=== PATIENT | male | born 1980 | race Two or more races ===

== ENCOUNTER → 2025-06-14 | Outpatient (CLI) | payer MEDICAID, SELFPAY ==
--- NOTE | 2025-06-14 13:27 | XR_ITS ---
Examination: Lumbar spine, 5 views Technique: Lumbar spine AP, lateral, coned lateral lower lumbar spine, bilateral obliques 5 views Exam date and time: June 14, 2025, 1332 hours MEDICATIONS: Low back pain 30 years getting worse. FINDINGS: Moderate osteopenia Moderate facet arthropathy No lumbar fracture Moderate lumbar spondylosis Mild diffuse lumbar disc narrowing IMPRESSION: Moderate lumbar spondylosis Mild diffuse lumbar disc narrowing
== END | disposition home or self-care (01) ==
LOC: CDIM 13:17
PROVIDERS: PCP Nurse Practitioner Family; Referring Provider Nurse Practitioner Family; Visit Provider Nurse Practitioner Family
DX: M47.816 Spondylosis without myelopathy or radiculopathy, lumbar region (principal); M48.061 Spinal stenosis, lumbar region without neurogenic claudication
CPT/HCPCS: 72110

== ENCOUNTER 2025-06-24 18:28 | Inpatient (IN) | payer MEDICAID, SELFPAY ==
--- NOTE | 2025-06-24 18:56 | XR_ITS ---
Examination: CT abdomen and pelvis without contrast. Coronal 3-D reconstructions. Sagittal 2-D reconstructions. Date and time of exam: June 24, 2025, 1912 hours INDICATIONS: Onset left-sided flank pain today CTDI: vol (mGy): 6.69 DLP: (mGycm): 410 Technique: Axial images of the abdomen have been obtained, 3 mm slice thickness Intravenous contrast material has not been administered. Low dose protocols were performed. One or more of the following dose reduction techniques were used; automated exposure control, adjustment of the mA and/or KV according to patient size, use of iterative reconstruction technique. Findings: 14 mm noncalcified pulmonary nodule left lower lobe No visualized liver or splenic lesion Suspicious for mild edema surrounding the pancreas Contracted gallbladder No adrenal mass No renal or ureteral calculi, no hydronephrosis Normal appendix Aorta normal size No prostatomegaly Urinary bladder intact Mild osteopenia IMPRESSION: 14 mm noncalcified pulmonary nodule left lower lobe, recommend PA lateral chest follow-up Suspicious for mild pancreatitis, clinical correlation advised No renal or ureteral calculi, no hydronephrosis
[2025-06-24 19:20] LABS: Basophils # (Auto) 0.1 Thou/mm3 (0.0-0.2); Basophils % (Auto) 0 % (0-2.5); Eosinophils # (Auto) 0.0 Thou/mm3 (0.0-0.5); Eosinophils % (Auto) 0 % (0-10); Hematocrit 42.5 % (41.0-53.0); Hemoglobin 15.3 g/dL (13.5-16.0); Immature Granulocytes Auto 0.10 Thou/mm3 (0.00-0.00); Lymphocytes # (Auto) 0.6 Thou/mm3 (1.0-4.8); Lymphocytes % (Auto) 3 % (10-50); Mean Corpuscular HGB Conc 36.0 g/dl (31.0-37.0); Mean Corpuscular Hemoglobin 33.6 pg (25.0-35.0); Mean Corpuscular Volume 93 fL (80-100); Monocytes # (Auto) 0.8 Thou/mm3 (0.0-0.8); Monocytes % (Auto) 4 % (0-12); Neutrophils # (Auto) 17.6 Thou/mm3 (1.8-7.7); Neutrophils % (Auto) 92 % (37-80); Nucleated Red Blood Cell # 0.00 Thou/mm3 (0.00-0.00); Nucleated Red Blood Cell % 0 /100 WBC (0); Platelet Count 259 Thou/mm3 (140-440); RDW Standard Deviation 41.1 fL (35.1-43.9); Red Blood Count 4.55 Miln/mm3 (4.50-5.90); White Blood Count 19.2 Thou/mm3 (3.8-10.6)
[2025-06-24 19:39] LABS: Alanine Aminotransferase 35 U/L (10-49); Albumin, Serum 5.0 gm/dL (3.5-5.0); Albumin/Globulin Ratio 2.1 (1.2-2.2); Alkaline Phosphatase 83 U/L (46-116); Anion Gap 12 (7-16); Aspartate Amino Transferase 48 U/L (0-34); BUN/Creatinine Ratio 7 Ratio (12-20); Bilirubin,Total 0.7 mg/dL (0.3-1.2); Blood Urea Nitrogen < 5 mg/dL (9-23); Calcium 10.0 mg/dL (8.3-10.6); Calcium (Corrected) 10.0 mg/dL (8.5-10.1); Carbon Dioxide 26.0 mMol/L (20.0-31.0); Chloride 98 mMol/L (98-107); Creatinine (Component) 0.7 mg/dL (0.6-1.3); Globulin 2.4 gm/dL (2.3-3.5); Glucose 129 mg/dL (74-106); Lipase 264 U/L (12-53); Osmolality,Calculated 271 (275-295); Potassium 3.9 mMol/L (3.4-5.1); Sodium 136 mMol/L (136-145); Total Protein 7.4 gm/dL (5.7-8.2); eGFR > 60 See Note
[2025-06-24 19:40] VITALS: BP 144/92; PULSE 72; RESP 18; TEMP 37; O2SAT 96
--- NOTE | 2025-06-24 19:51 | PD.EDABDPN ---
ED Abdominal Pain RME/HPI General Chief Complaint: Abdominal Pain Stated complaint: LLQ ABD PAIN, 05/31 Time seen by provider: 06/24/25 18:40 Arrival date/time: 06/24/25 18:28 This is a case of 44-year-old male with no medical history came into the emergency room due to generalized abdominal pain for 2 days associated with nausea vomiting due to worsening of the symptoms this patient decided to start consulted in the emergency room Related Data Allergies Allergy/AdvReac Type Severity Reaction Status Date / Time No Known Allergies Allergy Verified 06/24/25 18:35 Course Quality Measures none Orders Category Date Time Status COVID-19 Screening Questionnaire NOW Care 06/24/25 19:49 Active Decision to Admit X1 Care 06/24/25 19:[address] abdomen pelvis wo con Stat Exams 06/24/25 18:56 Completed CBC Stat Lab 06/24/25 19:07 Completed Comprehensive Metabolic Panel Stat Lab 06/24/25 19:07 Completed Lactic Acid [Lactate (Lactic Acid)] Stat Lab 06/24/25 19:49 Ordered Lipase Stat Lab 06/24/25 19:07 Completed Urinalysis Stat Lab 06/24/25 18:56 Ordered Morphine* Inj Med 06/24/25 19:50 Once 4 mg IVP X1 ONE Ondansetron Inj [Zofran Inj] Med 06/24/25 19:49 Once 4 mg IVP X1 ONE Sodium Chloride 0.9% 1000 ml [Ns] 1,000 ml Med 06/24/25 19:49 Ordered IV 999 mls/hr Vital Signs Vital signs: Vital Signs Temperature 98.6 F 06/24/25 19:40 Pulse Rate 72 06/24/25 19:40 Respiratory Rate 18 06/24/25 19:40 Blood Pressure 144/92 H 06/24/25 19:40 Pulse Oximetry (%) 96 06/24/25 19:40 Oxygen Delivery Method Room Air 06/24/25 19:40 Oxygen saturation is 96% in room air Abdominal Pain MDM MDM Narrative MDM Narrative:: This is a case of 44-year-old male with no medical history came into the emergency room due to generalized abdominal pain for 2 days associated with nausea vomiting due to worsening of the symptoms this patient decided to start consulted in the emergency room physical examination patient is awake alert oriented not in distress nontoxic looking well-hydrated well-nourished patient vital signs stable BP stable not tachycardic not tachypneic afebrile and nonhypoxic abdominal exam noted mild to moderate tenderness generalized in all quadrants of the abdomen no distention no guarding no rebound no rigidity negative psoas negative straight or negative Rovsing's negative Juwan's no Alvarez sign negative CVA tenderness excellent skin turgor patient blood test showed leukocytosis of 19.2 pending lactic acid patient has no anemia kidney and liver functions normal no electrolyte imbalance lipase is elevated at 264 urinalysis is still pending patient CT scan showed pancreatitis based on my physical examination and history patient need to be admitted for acute pancreatitis I spoke to Dr. Fuentes discussed patient condition history and physical examination and agreed that the patient need to be admitted discussed with the patient the treatment plan and admission and agreed Patient data External records reviewed:: [facility] previous records Clinical information provided by:: patient Social determinants that could affect healthcare access:: none Patient has the following chronic illnesses:: None How is presenting disease/condition affected by chronic disease/condition?: no chronic disease Evaluation data The following diagnostics were reviewed and interpreted by me:: lab results and radiology exam(s) Lab and/or radiology exams considered but not ordered:: Reviewed Interpretation Summary: Reviewed Medications / Prescriptions Medications or Prescriptions considered but not ordered:: Given Medication administrations:: Medication Administration History Sodium Chloride (Ns) 1,000 mls @ 999 mls/hr IV .Q1H1M ONE Stop: 06/24/25 20:49 Morphine Sulfate (Morphine Sulf Inj 4 Mg/Ml Vial) 4 mg IVP X1 ONE Stop: 06/24/25 19:51 Ondansetron HCl (Ondansetron Inj 2 Mg/Ml Inj 2 Ml) 4 mg IVP X1 ONE; Protocol Stop: 06/24/25 19:50 Given Consultations Consultation(s) initiated? (list below): Yes Consultation #1 (Physician, Specialty, Details): dr fuentes hospitalist and call discussed patient condition history and physical agreed patient need to be admitted for acute pancreatitis Diagnosis Differential diagnosis abdominal pain: abdominal pain, acute appendicitis, calculus of kidney, constipation, diverticulitis, endometriosis, gastroenteritis, pancreatitis and small bowel obstruction Most likely diagnosis given after review of the tests above:: Acute pancreatitis Admission Indicated Admission indicated?: indicated Explain why admission is indicated or not indicated:: Acute pancreatitis Admission Request Was there a request for admission?: Yes Admission Attestation Admission request attestation: Discussed case with [] from Hospitalist service regarding admission. Discussed patients ED course, exam findings, labs, and radiology results. The Hospitalist [agrees,declines] to accept the patient for admission. Disposition Plan Disposition Plan: Admit Discharge Plan Plan Patient Disposition: Admit Acute Care w/in Hospital Patient condition on transfer: Stable Prescriptions/Referrals Referrals: No Primary/Family,Physician [Primary Care Provider] - In 1 week Problem List Clinical Impression: Abdominal pain, Acute pancreatitis Patient/Caregiver Discharge Instructions Education Materials: Abdominal Pain, ED Pancreatitis Print Language: Turkmen Stand Alone Forms: Nirmala Award Info., Patient Portal Info Letter PA/SALESFORCE SPECIALIST Supervising Physician PA/SALESFORCE SPECIALIST Supervising Physician: dr white
--- NOTE | 2025-06-24 20:28 | XR_ITS ---
Examination: Abdomen sonogram, Limited Date and time of exam: June 24, 2025, 2125 hours INDICATIONS: Epigastric pain beginning 3 days ago. Technique: Real-time flynn scale transabdominal sonographic images of the upper abdomen obtained. Findings: Negative for gallstones Gallbladder wall 0.37 cm no edema Common bile duct 0.2 cm Pancreatic at 3.1 cm Liver 16.4 cm no focal liver lesions Normal hepatopetal portal venous Patent IVC IMPRESSION: Negative for cholelithiasis Borderline thickening gallbladder wall 0.37 cm, if cholecystitis is a clinical consideration, suggest HIDA scan or MRCP follow-up
[2025-06-24] MEDS: ONDANSETRON INJ 2 MG/ML INJ 2 ML 4 MG IVP (20:52)
[2025-06-24] MEDS: SODIUM CHLORIDE 0.9% 1000 ML 1,000 ML 999 ML IV (20:52)
[2025-06-24] MEDS: MORPHINE SULF INJ 4 MG/ML VIAL IVP (20:53)
[2025-06-24 20:55] VITALS: BMI 20.2
[2025-06-24 20:58] VITALS: BP 142/87; PULSE 76; RESP 22; TEMP 36.9; O2SAT 97
[2025-06-24 21:06] LABS: Lactate (Lactic Acid) 3.7 mMol/L (0.4-2.0)
--- NOTE | 2025-06-24 21:17 | ESHP_ITS ---
<Statement entered by Amadeo Soto MD - 06/25/25 05:48> I have discussed and was present for the essential components of the history, physical examination, diagnosis, and treatment plan with the resident. I agree with the patient's care as documented by the resident and amended herein by me. Amadeo Soto MD FACP. 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 Admitted for acute pancreatitis most likely alcohol induced. ED Course Summary: VS: Hypertensive, all other vitals stable. T 98.6F HR 72 RR 18 BP 144/92 O2 96% RA. Labs: Leukocytosis WBC 19.2 Lactic acid Lipase 264 AST 48 Imaging: CTAP mild pancreatitis, 14mm noncalicfied pulm nodule LLL. US gallbladder: negative for cholelithiasis, borderline thickening gallbladder wall 0.37cm Tx: Morphine sulfate 4mg IVPx1, ondansetron 4mg IVP and NS 1L Patient examined with a lithuanian speaking electronics technician. His friend is in the room and patient confirms he may be privy to the conversation. His pain is mainly eipgastric and in the RLQ but it also radiates to his back. He is uncertain if he is vomiting due to pain or nausea and states dos which means both in taiwanese. He has not eaten today so he is uncertain if eating is exacerbating his pain. He denies history of trauma to his abdomen. He denies having any blood in his stool or vomit. He endorses an appetite and requests food. His last drink was today, he does not have a history of alcohol withdrawal seizures. Code: Full Insulin: None Medical Hx: None Medications: None Allergies: KNA Surgical history: None Fhx: Noncontributory Living: with friend Alcohol: 6-12 beers (12oz) every day since age 13 -- 29 years Cigarettes/tobacco: denies Recreational drugs: denies Patient admitted for: acute pancreatitis All 12 systems reviewed and were negative except otherwise stated in HPI. Exam Vital Signs Temp Pulse Resp BP Pulse Ox O2 Del Method 98.5 F 76 22 H 142/87 H 97 Room Air 06/24/25 20:58 06/24/25 20:58 06/24/25 20:58 06/24/25 20:58 06/24/25 20:58 06/24/25 20:58 Narrative Exam GENERAL APPEARANCE: AOx4. NAD, activity normal for age, well developed/ well nourished, no cyanosis, pallor, or diaphoresis. HEENT: Normocephalic atraumatic, no facial trauma, neck is supple. Lids/conjunctiva normal. Mucous membranes moist, nares normal, lips/teeth normal uvula midline without oral pharyngeal erythema, exudate or swelling TMs normal bilaterally. No lymphangitis/lymphedema. CARDIAC: Regular rate and rhythm, S1+S2 heard. No murmurs, rubs, or gallops noted RESPIRATORY: respiratory effort normal, speaks in full sentences, no tripod position, no accessory muscle use. Lungs clear to auscultation without rhonchi, wheezes, rales ABDOMINAL: NBS. Soft, diffusely TTP most sensitive in epigastrium and RLQ. No evidence of fluid wave. No pulsatile masses on exam, rebound tenderness, Alvarez sign or pain over Mcburney's point. MUSCLES/EXTREMITIES: No abnormal range of motion, no swelling. DERM: Warm, pink and dry. No rashes, dermatoses, petechiae or lesions. NEUROLOGICAL: Speech is clear and appropriate. Normal level of consciousness. Gait and coordination are normal. 5/5 strength in all extremities. PSYCH: Normal mood and affect. Judgement/competence is appropriate Results: Labs 06/24/25 19:07 06/24/25 19:07 Labs: Short CBC 06/24/25 Range/Units 19:07 WBC 19.2 H (3.8-10.6) Thou/mm3 Hgb 15.3 (13.5-16.0) g/dL Hct 42.5 (41.0-53.0) % Plt Count 259 (140-440) Thou/mm3 BMP 06/24/25 19:07 Sodium 136 Potassium 3.9 Chloride 98 Carbon Dioxide 26.0 BUN < 5 L Creatinine 0.7 Glucose 129 H Calcium 10.0 Liver Function 06/24/25 Range/Units 19:07 Total Bilirubin 0.7 (0.3-1.2) mg/dL AST 48 H (0-34) U/L ALT 35 (10-49) U/L Alkaline Phosphatase 83 (46-116) U/L Albumin 5.0 (3.5-5.0) gm/dL Quality Measures Quality Measures none Medications Home Medications and Allergies Allergies Allergy/AdvReac Type Severity Reaction Status Date / Time No Known Allergies Allergy Verified 06/24/25 18:35 Visit Medications Discontinued Medications Sodium Chloride (Ns) 1,000 mls @ 999 mls/hr IV .Q1H1M ONE Stop: 06/24/25 20:49 Last Admin: 06/24/25 20:52 Dose: 999 mls/hr Morphine Sulfate (Morphine Sulf Inj 4 Mg/Ml Vial) 4 mg IVP X1 ONE Stop: 06/24/25 19:51 Last Admin: 06/24/25 20:53 Dose: 4 mg Ondansetron HCl (Ondansetron Inj 2 Mg/Ml Inj 2 Ml) 4 mg IVP X1 ONE; Protocol Stop: 06/24/25 19:50 Last Admin: 06/24/25 20:52 Dose: 4 mg Assessment & Plan Plan 44 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 Admitted for acute pancreatitis most likely alcohol induced. #Acute Pancreatitis Ddx igdiopathic, gallstone, ethanol, trauma. 2 days of worsening nausea and vomiting with pain that radiates to the back. 31 year history of 6-12 beers/day alcohol consumption. Physical exam was significant for diffuse TTP of the abdomen with heightened sensitivity in RLQ and epigastrium, no signs of acute abdomen. Labs significant for leukocytosis WBC 19.2 Lactic acid Lipase 264 AST 48. CTAP mild pancreatitis. Very low clinical suspicion for gallstones due to normal T.bili and minimal RUQ discomfort TTP, Gallbladder US: negative for cholelithiasis, borderline thickening gallbladder wall 0.37cm. If cholecystitis is clinical consideration suggest HIDA scan or MRCP follow up. Patient denies history of trauma to the abdomen. Advance diet as tolerated, hold for any nausea, vomiting or post prandial pain. Plan: -FUP lipid panel:___ -FUP LDH:___ -FUP A1C:___ -Zofran 4mg IVP Q6HR PRN inj -IVF LR 1.5ml/kg/hr (65x1.5=97.5ml/hr rounded up to 100ml/hr) -Tylenol 650mg PO Q6HR PRN -Narco 5 PO Q4HR PRN -Morphine inj 2mg IVP Q4HR PRN -Diet CLD advance as tolerated -I/O routine #CIWA 31 year history of 6-12 beers/day alcohol consumption. Last drink today. CIWA difficult to assess due to overlap with pancreatitis such as nausea, vomiting, and discomfort. CIWA 5 due to NV, no tremor appreciated, mildly anxious, minimally agitated, no hallucinations. LFTS wnl other than minimal elevation of aspartate. Spoke with department nurse BRYAN less than 8 med surg, 8-15 can go to tele. Pending change or worsening symptoms will upgrade. Plan: -CIWA protocols -Folic acid -Thiamine #Incidental finding 14mm Noncalcified pulm nodule LLL Plan: -PA lateral chest Health Maintenance: Code status: Full DVT prophylaxis: heparin subQ Q12hr GI prophylaxis: Famotidine Diet: CLD advance as tolerated Ramesh: None Lines: PIV Supplemental O2: NC Disposition: Med surg for pancreatitis Patient seen and reviewed with attending Dr. Soto. Note written by Jagdish Pond MD PGY-1
[2025-06-24 22:04] LABS: Collection Type, Urine Clean Catch; Squamous Epithelial Cell,Urine 0 /hpf (0-5)
[2025-06-24 22:11] LABS: Bilirubin,Urine Negative (Negative); Blood,Urine Trace (Negative); Clarity,Urine Clear (Clear/Hazy); Color,Urine Yellow (Lt Yel-Yel); Glucose, Urine Negative (Negative); Hyaline Casts,Urine < 1 /hpf (0-1); Ketones,Urine Negative (Negative); Leukocyte Esterase,Urine Negative (Negative); Nitrite,Urine Negative (Negative); PH,Urine 6.5 (5.0-7.0); Protein,Urine Trace (Neg - Trace); RBC,Urine 17 /hpf (0-3); Specific Gravity,Urine 1.027 (1.001-1.035); Urobilinogen,Urine Negative mg/dL (0.0-1.0); WBC,Urine 2 /hpf (0-5)
--- NOTE | 2025-06-24 22:52 | XR_ITS ---
EXAMINATION: Lateral chest view TECHNIQUE: Upright lateral chest single view Date and time: June 24, 2025, 11:01 p.m., comparison none CT abdomen June 24, 2025 INDICATION: 14 mm noncalcified pulmonary nodule left lower lobe on CT abdomen study today FINDINGS: 10 mm nodule overlying the right middle lobe on the lateral view Atelectasis versus pneumonia left lower lobe IMPRESSION: 10 mm nodule overlying the right middle lobe on the lateral view, recommend 3-month follow-up PA lateral chest
[2025-06-24] MEDS: RINGERS LACTATED 1000 ML 1,000 ML 100 ML IV (22:57)
[2025-06-24] MEDS: MORPHINE SULF INJ 4 MG/ML VIAL 2 MG IVP (23:03)
--- NOTE | 2025-06-24 23:11 | PC.NURSE ---
to cxr per w/c, saline lock iv. Accompanied by it business process architect.
[2025-06-25] VITALS (7 sets, daily range): BP systolic 125–132; BP diastolic 79–86; PULSE 62–78; RESP 16–18; TEMP 36.9–37.6; O2SAT 96–97; BMI 20.2
[2025-06-25 00:03] LABS: Reflex Lactate? Y
[2025-06-25 00:53] LABS: Lactic Acid, 3 HR 2.6 mMol/L (0.4-2.0)
[2025-06-25 06:24] LABS: Basophils # (Auto) 0.0 Thou/mm3 (0.0-0.2); Basophils % (Auto) 0 % (0-2.5); Eosinophils # (Auto) 0.0 Thou/mm3 (0.0-0.5); Eosinophils % (Auto) 0 % (0-10); Hematocrit 40.8 % (41.0-53.0); Hemoglobin 14.2 g/dL (13.5-16.0); Immature Granulocytes Auto 0.04 Thou/mm3 (0.00-0.00); Lymphocytes # (Auto) 1.2 Thou/mm3 (1.0-4.8); Lymphocytes % (Auto) 10 % (10-50); Mean Corpuscular HGB Conc 34.8 g/dl (31.0-37.0); Mean Corpuscular Hemoglobin 33.4 pg (25.0-35.0); Mean Corpuscular Volume 96 fL (80-100); Monocytes # (Auto) 0.7 Thou/mm3 (0.0-0.8); Monocytes % (Auto) 6 % (0-12); Neutrophils # (Auto) 9.7 Thou/mm3 (1.8-7.7); Neutrophils % (Auto) 83 % (37-80); Nucleated Red Blood Cell # 0.00 Thou/mm3 (0.00-0.00); Nucleated Red Blood Cell % 0 /100 WBC (0); Platelet Count 242 Thou/mm3 (140-440); RDW Standard Deviation 42.1 fL (35.1-43.9); Red Blood Count 4.25 Miln/mm3 (4.50-5.90); White Blood Count 11.6 Thou/mm3 (3.8-10.6)
[2025-06-25 06:45] LABS: Alanine Aminotransferase 26 U/L (10-49); Albumin, Serum 4.4 gm/dL (3.5-5.0); Albumin/Globulin Ratio 2.6 (1.2-2.2); Alkaline Phosphatase 72 U/L (46-116); Anion Gap 10 (7-16); Aspartate Amino Transferase 33 U/L (0-34); BUN/Creatinine Ratio 9 Ratio (12-20); Bilirubin,Total 1.1 mg/dL (0.3-1.2); Blood Urea Nitrogen 6 mg/dL (9-23); Calcium 9.3 mg/dL (8.3-10.6); Calcium (Corrected) 9.3 mg/dL (8.5-10.1); Carbon Dioxide 29.3 mMol/L (20.0-31.0); Cardiac Risk Estimate 2.2 RATIO (4.0-6.7); Chloride 100 mMol/L (98-107); Cholesterol 161 mg/dL (132-200); Creatinine (Component) 0.7 mg/dL (0.6-1.3); Estimated Creatinine Clearance 122.7 mL/min (>60); Globulin 1.7 gm/dL (2.3-3.5); Glucose 109 mg/dL (74-106); HDL Cholesterol 73 mg/dL (40-60); LDL Cholesterol,Calculated 66 mg/dL (0-130); Magnesium 1.8 mg/dL (1.6-2.6); Osmolality,Calculated 276 (275-295); Phosphorous 3.2 mg/dL (2.4-5.1); Potassium 3.6 mMol/L (3.4-5.1); Sodium 139 mMol/L (136-145); Total Protein 6.1 gm/dL (5.7-8.2); Triglycerides 112 mg/dL (30-150); eGFR > 60 See Note
[2025-06-25] MEDS: RINGERS LACTATED 1000 ML 1,000 ML 100 ML IV ×3 (06:45→19:25)
[2025-06-25 06:48] LABS: Glucose Estimated Average 120 mg/dL (80-131); Hemoglobin A1C 5.8 % Hgb (4.8-6.0)
[2025-06-25] MEDS: FAMOTIDINE INJ 10 MG/ML VIAL 2 ML 20 MG IVP ×2 (09:25→20:12)
[2025-06-25] MEDS: KETOROLAC INJ 30 MG/ML VIAL IVP ×3 (09:28→20:08)
[2025-06-25] MEDS: DOCUSATE SOD 100 MG CAPSULE PO (09:29)
[2025-06-25] MEDS: THIAMINE 100 MG TABLET PO ×2 (09:29→20:15)
[2025-06-25] MEDS: HYDROcodone/APAP 5/325 TABLET 1 TAB PO (09:29)
[2025-06-25] MEDS: HEPARIN SOD INJ 5000 UNIT/ML VIAL SC ×2 (09:29→20:19)
[2025-06-25] MEDS: FOLIC ACID 1 MG TABLET PO ×2 (09:29→20:15)
--- NOTE | 2025-06-25 11:47 | PC.SS ---
SS provided pt with verbal options to establish PCP. Patient's choice is [facility]. SS spoke to Poppy from [facility] and scheduled pt an appointment with Dr. Vaughn from [facility] address: [address] [place] [address]. [id number] phone# [phone] at 11:45am on Tuesday. SS provided pt with [facility] with appointment information.
--- NOTE | 2025-06-25 12:17 | PC.SS ---
SS met with patient regarding his d/c plan. Pt is alert/oriented. Pt was admitted for Acute Pancreatits. Pt confirmed demographic and contact information is correct on facesheet. Pt resides with sister. Pt ambulates independently without assistance or DME. Pt is ok with all ADLs. Patient?s pharmacy of choice is [facility] on [address] Pt named his sister, Kellie Daniel medical decision maker if he is unable. Patient?s choice is to return home upon d/c. Pt states he followed up with PCP 6 months ago. Sister or his friend, Thee will provide transportation home upon dc. D/C plan: Return home Next of Kin: Kellie Daniel, sister, phone# [phone] PCP: Will establish with Dr. Vaughn from [facility] Address: Correct on facesheet
--- NOTE | 2025-06-25 16:47 | ESPR_ITS ---
<Statement entered by Pedro Mei MD - 06/25/25 18:09> Patient seen and examined at bedside. I discussed and supervised with the internet sales representative physician who took care of this patient. I personally saw and examined the patient. I agree with most of the assessment and plan. Plan of care discussed with attending Dr. Hernandez. Pedro Mei MD PGY-2 Documentation for date of: 06/25/25 Subjective Subjective Interval history: Patient is seen and examined by bedside. Reported feeling better and requested more food. Denied nausea, vomiting. Admitted to abdominal pain 02/28 an requested pain medication. Labs and imagings including incidental findings explained to patient and sister with patient's permission. Plan to advance diet as tolerated and reassess tomorrow. Exam Vital Signs Temp Pulse Resp BP Pulse Ox O2 Del Method 98.4 F 62 17 125/79 97 Room Air 06/25/25 11:53 06/25/25 11:53 06/25/25 11:53 06/25/25 11:53 06/25/25 11:53 06/25/25 11:53 Narrative Exam GENERAL APPEARANCE: AOx4. NAD, activity normal for age, well developed/ well nourished, no cyanosis, pallor, or diaphoresis. CARDIAC: Regular rate and rhythm, S1+S2 heard. No murmurs, rubs, or gallops noted RESPIRATORY: respiratory effort normal, speaks in full sentences, no tripod position, no accessory muscle use. Lungs clear to auscultation without rhonchi, wheezes, rales ABDOMINAL: NBS. Soft, diffusely TTP most sensitive in epigastrium and RLQ. No evidence of fluid wave. No pulsatile masses on exam, rebound tenderness, Alvarez sign or pain over Mcburney's point. MUSCLES/EXTREMITIES: No abnormal range of motion, no swelling. DERM: Warm, pink and dry. No rashes, dermatoses, petechiae or lesions. NEUROLOGICAL: Speech is clear and appropriate. Normal level of consciousness. Gait and coordination are normal. 5/5 strength in all extremities. PSYCH: Normal mood and affect. Objective Labs 06/26/25 05:00 06/26/25 05:00 Labs: Laboratory Results - last 24 hr 06/24/25 06/24/25 06/24/25 19:07 20:36 21:52 WBC 19.2 H RBC 4.55 Hgb 15.3 Hct 42.5 MCV 93 MCH 33.6 MCHC 36.0 RDW Std Deviation 41.1 Plt Count 259 Neut % (Auto) 92 H Lymph % (Auto) 3 L Wood % (Auto) 4 Eos % (Auto) 0 Baso % (Auto) 0 Neut # (Auto) 17.6 H Lymph # (Auto) 0.6 L Wood # (Auto) 0.8 Eos # (Auto) 0.0 Baso # (Auto) 0.1 Immature Gran # (Auto) 0.10 H Absolute Nucleated RBC 0.00 Immature Gran % 1 H Nucleated RBC % 0 Sodium 136 Potassium 3.9 Chloride 98 Carbon Dioxide 26.0 Anion Gap 12 BUN < 5 L Creatinine 0.7 Estim Creat Clear Calc Not Performed. eGFR > 60 BUN/Creatinine Ratio 7 L Glucose [address] Glu mg/dL Hemoglobin A1c Calculated Osmolality 271 L Lactic Acid 3.7 H Calcium 10.0 Corrected Calcium 10.0 Phosphorus Magnesium Total Bilirubin 0.7 AST 48 H ALT 35 Alkaline Phosphatase 83 Total Protein 7.4 Albumin 5.0 Globulin 2.4 Albumin/Globulin Ratio 2.1 Triglycerides Cholesterol LDL Cholesterol, Calc HDL Cholesterol Cholesterol/HDL Ratio Lipase 264 H Ur Collection Type Clean Catch Urine Color Yellow Urine Clarity Clear Urine pH 6.5 Ur Specific [place] 1.027 Urine Protein Trace Urine Glucose (UA) Negative Urine Ketones Negative Urine Blood Trace Urine Nitrite Negative Urine Bilirubin Negative Urine Urobilinogen (Auto) Negative Ur Leukocyte Esterase Negative Urine RBC 17 H Urine WBC 2 Ur Squamous Epith Cells 0 Urine Bacteria None Hyaline Casts < 1 06/25/25 06/25/25 00:34 05:57 WBC 11.6 H D RBC 4.25 L Hgb 14.2 Hct 40.8 L MCV 96 MCH 33.4 MCHC 34.8 RDW Std Deviation 42.1 Plt Count 242 Neut % (Auto) 83 H Lymph % (Auto) 10 Wood % (Auto) 6 Eos % (Auto) 0 Baso % (Auto) 0 Neut # (Auto) 9.7 H Lymph # (Auto) 1.2 Wood # (Auto) 0.7 Eos # (Auto) 0.0 Baso # (Auto) 0.0 Immature Gran # (Auto) 0.04 H Absolute Nucleated RBC 0.00 Immature Gran % 0 Nucleated RBC % 0 Sodium 139 Potassium 3.6 Chloride 100 Carbon Dioxide 29.3 Anion Gap 10 BUN 6 L Creatinine 0.7 Estim Creat Clear Calc 122.7 eGFR > 60 BUN/Creatinine Ratio 9 L Glucose [address] Glu mg/dL 120 Hemoglobin A1c 5.8 Calculated Osmolality 276 Lactic Acid 2.6 H Calcium 9.3 Corrected Calcium 9.3 Phosphorus 3.2 Magnesium 1.8 Total Bilirubin 1.1 AST 33 ALT 26 Alkaline Phosphatase 72 Total Protein 6.1 Albumin 4.4 D Globulin 1.7 L Albumin/Globulin Ratio 2.6 H Triglycerides 112 Cholesterol 161 LDL Cholesterol, Calc 66 HDL Cholesterol 73 H Cholesterol/HDL Ratio 2.2 L Lipase Ur Collection Type Urine Color Urine Clarity Urine pH Ur Specific [place] Urine Protein Urine Glucose (UA) Urine Ketones Urine Blood Urine Nitrite Urine Bilirubin Urine Urobilinogen (Auto) Ur Leukocyte Esterase Urine RBC Urine WBC Ur Squamous Epith Cells Urine Bacteria Hyaline Casts Quality Measures Quality Measures VTE prophylaxis Assessment & Plan Assessment Current Active Medications: Generic Name Dose Route Start Last Admin Trade Name Freq PRN Reason Stop Dose Admin Acetaminophen 650 mg 06/24/25 21:18 Acetaminophen 325 Mg Tablet PO 07/24/25 21:17 Q6H PRN Fever >100.4 or pain 1-3 Hydrocodone Bitart/Acetaminophen 1 tab 06/24/25 21:23 06/25/25 09:29 Hydrocodone/Apap 5/325 Tablet PO 06/29/25 21:22 1 tab Q4HR PRN Administration PAIN SCALE 4-6 (Moderate Docusate Sodium 100 mg 06/25/25 09:00 06/25/25 09:29 Docusate Sod 100 Mg Capsule PO 07/25/25 08:59 100 mg QDAY RAYMOND Administration Protocol Famotidine 20 mg 06/25/25 09:00 06/25/25 09:25 Famotidine Inj 10 Mg/Ml Vial 2 Ml IVP 07/25/25 08:59 20 mg Q12HR RAYMOND Administration Folic Acid 1 mg 06/25/25 09:00 06/25/25 09:29 Folic Acid 1 Mg Tablet PO 06/30/25 08:59 1 mg BID RAYMOND Administration Heparin Sodium (Porcine) 5,000 unit 06/25/25 09:00 06/25/25 09:29 Heparin Sod Inj 5000 Unit/Ml Vial SC 07/09/25 08:59 5,000 unit Q12HR RAYMOND Administration Lactated Ringer's 1,000 mls @ 100 mls/hr 06/24/25 21:30 06/25/25 09:25 Lactated Ringers IV 07/24/25 21:29 100 mls/hr .Q10H RAYMOND Administration Ketorolac Tromethamine 30 mg 06/25/25 21:00 Ketorolac Inj 30 Mg/Ml Vial IVP 06/25/25 21:01 Q6HR RAYMOND Lorazepam 0.5 mg 06/24/25 21:54 Lorazepam 0.5 Mg Tablet PO 06/29/25 21:53 Q4HR PRN CIWA Score 2-6 Lorazepam 1 mg 06/24/25 21:54 Lorazepam 0.5 Mg Tablet PO 06/29/25 21:53 Q4HR PRN CIWA SCORE 7-11 Lorazepam 2 mg 06/24/25 21:54 Lorazepam 0.5 Mg Tablet PO 06/29/25 21:53 Q4HR PRN CIWA SCORE 12-15 Morphine Sulfate 2 mg 06/24/25 21:23 06/24/25 23:03 Morphine Sulf Inj 4 Mg/Ml Vial IVP 06/29/25 21:22 2 mg Q4HR PRN Administration PAIN SCALE 7-10 (Severe Ondansetron HCl 4 mg 06/24/25 21:18 Ondansetron Inj 2 Mg/Ml Inj 2 Ml IVP 07/24/25 21:17 Q6H PRN NAUSEA OR VOMITING Protocol Thiamine HCl 100 mg 06/25/25 09:00 06/25/25 09:29 Thiamine 100 Mg Tablet PO 06/30/25 08:59 100 mg BID RAYMOND Administration Plan #Acute Pancreatitis Ddx idiopathic, gallstone, ethanol, trauma. 2 days of worsening nausea and vomiting with pain that radiates to the back. 31 year history of 6-12 beers/day alcohol consumption. Physical exam was significant for diffuse TTP of the abdomen with heightened sensitivity in RLQ and epigastrium, no signs of acute abdomen. Labs significant for leukocytosis WBC 19.2 Lactic acid Lipase 264 AST 48. CTAP mild pancreatitis. Very low clinical suspicion for gallstones due to normal T.bili and minimal RUQ discomfort TTP, Gallbladder US: negative for cholelithiasis, borderline thickening gallbladder wall 0.37cm. Patient denies history of trauma to the abdomen. Advance diet as tolerated. Triaglyceride 112. Plan: -Zofran 4mg IVP Q6HR PRN inj -IVF LR 1.5ml/kg/hr (65x1.5=97.5ml/hr rounded up to 100ml/hr) -Tylenol 650mg PO Q6HR PRN -Narco 5 PO Q4HR PRN -Morphine inj 2mg IVP Q4HR PRN -Ketorolac 30mg IVP Q6HR -Diet FLD advance as tolerated -I/O routine #CIWA 31 year history of 6-12 beers/day alcohol consumption. Last drink today. CIWA difficult to assess due to overlap with pancreatitis such as nausea, vomiting, and discomfort. CIWA 5 due to NV, no tremor appreciated, mildly anxious, minimally agitated, no hallucinations. LFTS wnl other than minimal elevation of aspartate. Last drink 24hrs ago. CIWA 0 this morning Plan: -CIWA protocols -Folic acid -Thiamine #Incidental finding 14mm Noncalcified pulm nodule LLL -CT abdomen/pelvis showed 14 mm noncalcified pulmonary nodule left lower lobe, recommend PA lateral chest follow-up -Chest Xray showed 10 mm nodule overlying the right middle lobe on the lateral view, recommend 3-month follow-up PA lateral chest -Patient is currently asymptomatic at this time, no intervention needed Plan: -Advised patient to follow up with PCP to repeat PA lateral chest in 3 mon DVT prophylaxis: Heparin GI prophylaxis: Pepcid Diet: Full liquid diet, advance as tolerated Lines: Peripheral IV Code status: Full code Assessment and plan discussed with my attending physician Dr. Hernandez and Dr. Mei (PGY-2). Dr. Sutherland (PGY-1) ? physical therapy resident Attending Provider Attestation/Addendum I have discussed and was present for the essential components of the history, physical examination, diagnosis, and treatment plan with the resident. I agree with the patient's care as documented by the resident and amended herein by me. Sheldon Hernandez DO. Although this document has been carefully reviewed, there may still be some phonetic and other typographical errors. These errors are purely grammatical due to imperfections in the software program and should not be construed in any way to compromise the substance of the patient's medical care during this visit.
[2025-06-26] VITALS: BP 134/80; PULSE 74; RESP 17; TEMP 37.3; O2SAT 97
[2025-06-26 04:00] VITALS: BP 135/96; PULSE 92; RESP 18; TEMP 37.6; O2SAT 95
[2025-06-26] MEDS: MORPHINE SULF INJ 4 MG/ML VIAL 2 MG IVP (05:10)
[2025-06-26] MEDS: RINGERS LACTATED 1000 ML 1,000 ML 100 ML IV (05:15)
[2025-06-26 06:00] VITALS: BMI 20.2
[2025-06-26 06:22] LABS: Basophils # (Auto) 0.0 Thou/mm3 (0.0-0.2); Basophils % (Auto) 0 % (0-2.5); Eosinophils # (Auto) 0.0 Thou/mm3 (0.0-0.5); Eosinophils % (Auto) 0 % (0-10); Hematocrit 39.8 % (41.0-53.0); Hemoglobin 14.2 g/dL (13.5-16.0); Immature Granulocytes Auto 0.05 Thou/mm3 (0.00-0.00); Lymphocytes # (Auto) 0.9 Thou/mm3 (1.0-4.8); Lymphocytes % (Auto) 7 % (10-50); Mean Corpuscular HGB Conc 35.7 g/dl (31.0-37.0); Mean Corpuscular Hemoglobin 34.3 pg (25.0-35.0); Mean Corpuscular Volume 96 fL (80-100); Monocytes # (Auto) 1.0 Thou/mm3 (0.0-0.8); Monocytes % (Auto) 7 % (0-12); Neutrophils # (Auto) 11.1 Thou/mm3 (1.8-7.7); Neutrophils % (Auto) 85 % (37-80); Nucleated Red Blood Cell # 0.00 Thou/mm3 (0.00-0.00); Nucleated Red Blood Cell % 0 /100 WBC (0); Platelet Count 209 Thou/mm3 (140-440); RDW Standard Deviation 42.3 fL (35.1-43.9); Red Blood Count 4.14 Miln/mm3 (4.50-5.90); White Blood Count 13.1 Thou/mm3 (3.8-10.6)
[2025-06-26 06:47] LABS: Alanine Aminotransferase 19 U/L (10-49); Albumin, Serum 4.3 gm/dL (3.5-5.0); Albumin/Globulin Ratio 2.3 (1.2-2.2); Alkaline Phosphatase 71 U/L (46-116); Anion Gap 10 (7-16); Aspartate Amino Transferase 27 U/L (0-34); BUN/Creatinine Ratio 10 Ratio (12-20); Bilirubin,Total 1.0 mg/dL (0.3-1.2); Blood Urea Nitrogen 6 mg/dL (9-23); Calcium 9.4 mg/dL (8.3-10.6); Calcium (Corrected) 9.4 mg/dL (8.5-10.1); Carbon Dioxide 29.0 mMol/L (20.0-31.0); Chloride 99 mMol/L (98-107); Creatinine (Component) 0.6 mg/dL (0.6-1.3); Estimated Creatinine Clearance 143.1 mL/min (>60); Globulin 1.9 gm/dL (2.3-3.5); Glucose 111 mg/dL (74-106); Magnesium 1.6 mg/dL (1.6-2.6); Osmolality,Calculated 274 (275-295); Phosphorous 2.9 mg/dL (2.4-5.1); Potassium 3.4 mMol/L (3.4-5.1); Sodium 138 mMol/L (136-145); Total Protein 6.2 gm/dL (5.7-8.2); eGFR > 60 See Note
[2025-06-26 07:24] VITALS: BP 135/86; PULSE 77; RESP 16; TEMP 36.5; O2SAT 95
[2025-06-26] MEDS: DOCUSATE SOD 100 MG CAPSULE PO (10:09)
[2025-06-26] MEDS: THIAMINE 100 MG TABLET PO ×2 (10:10→20:47)
[2025-06-26] MEDS: FOLIC ACID 1 MG TABLET PO ×2 (10:10→20:47)
[2025-06-26] MEDS: HEPARIN SOD INJ 5000 UNIT/ML VIAL SC ×2 (10:11→20:47)
--- NOTE | 2025-06-26 11:00 | PC.SS ---
SS follow up note; Patient is discharging home today.
[2025-06-26] MEDS: FAMOTIDINE INJ 10 MG/ML VIAL 2 ML 20 MG IVP ×2 (11:08→20:48)
[2025-06-26 11:24] VITALS: BP 104/70; PULSE 86; RESP 20; TEMP 38.1; O2SAT 94
[2025-06-26] MEDS: RINGERS LACTATED 1000 ML 1,000 ML 150 ML IV (11:25)
--- NOTE | 2025-06-26 14:11 | ESPR_ITS ---
<Statement entered by Pedro Mei MD - 06/26/25 21:45> Patient seen and examined at bedside. I discussed and supervised with the industrial engineering intern physician who took care of this patient. I personally saw and examined the patient. I agree with most of the assessment and plan. Plan of care discussed with attending Dr. Hernandez. Pedro Mei MD PGY-2 Documentation for date of: 06/26/25 Subjective Subjective Interval history: Patient reported reported having difficulty sleeping due to pain. Pain is currently 6/10. WBC increased 11.6-13.1. Patient spiked a fever of 100.5 during rounds with blood pressure 104/70. Patient finished 100% on FLD, ordered regular diet tray this morning. Took morphine 2 mg this morning at 5am, still on lactated Ringer 100 cc/h on CIWA protocol. Last drink 2 days ago. Exam Vital Signs Temp Pulse Resp BP Pulse Ox O2 Del Method 100.5 F H 86 20 104/70 94 L Room Air 06/26/25 11:24 06/26/25 11:24 06/26/25 11:24 06/26/25 11:24 06/26/25 11:24 06/26/25 11:24 Narrative Exam GENERAL APPEARANCE: AOx4. NAD, activity normal for age, well developed/ well nourished, no cyanosis, pallor, or diaphoresis. CARDIAC: Regular rate and rhythm, S1+S2 heard. No murmurs, rubs, or gallops noted RESPIRATORY: respiratory effort normal, speaks in full sentences, no tripod position, no accessory muscle use. Lungs clear to auscultation without rhonchi, wheezes, rales ABDOMINAL: NBS. Soft, diffusely TTP most sensitive in epigastrium and RLQ. No evidence of fluid wave. No pulsatile masses on exam, rebound tenderness, Alvarez sign or pain over Mcburney's point. MUSCLES/EXTREMITIES: No abnormal range of motion, no swelling. DERM: Warm, pink and dry. No rashes, dermatoses, petechiae or lesions. NEUROLOGICAL: Speech is clear and appropriate. Normal level of consciousness. Gait and coordination are normal. 5/5 strength in all extremities. PSYCH: Normal mood and affect. Objective Labs 06/26/25 05:00 06/26/25 05:00 Labs: Laboratory Results - last 24 hr 06/26/25 05:00 WBC 13.1 H RBC 4.14 L Hgb 14.2 Hct 39.8 L MCV 96 MCH 34.3 MCHC 35.7 RDW Std Deviation 42.3 Plt Count 209 D Neut % (Auto) 85 H Lymph % (Auto) 7 L [place] % (Auto) 7 Eos % (Auto) 0 Baso % (Auto) 0 Neut # (Auto) 11.1 H Lymph # (Auto) 0.9 L [place] # (Auto) 1.0 H Eos # (Auto) 0.0 Baso # (Auto) 0.0 Immature Gran # (Auto) 0.05 H Absolute Nucleated RBC 0.00 Immature Gran % 0 Nucleated RBC % 0 Sodium 138 Potassium 3.4 Chloride 99 Carbon Dioxide 29.0 Anion Gap 10 BUN 6 L Creatinine 0.6 Estim Creat Clear Calc 143.1 eGFR > 60 BUN/Creatinine Ratio 10 L Glucose 111 H Calculated Osmolality 274 L Calcium 9.4 Corrected Calcium 9.4 Phosphorus 2.9 Magnesium 1.6 Total Bilirubin 1.0 AST 27 ALT 19 Alkaline Phosphatase 71 Total Protein 6.2 Albumin 4.3 Globulin 1.9 L Albumin/Globulin Ratio 2.3 H Quality Measures Quality Measures VTE prophylaxis Assessment & Plan Assessment Current Active Medications: Generic Name Dose Route Start Last Admin Trade Name Freq PRN Reason Stop Dose Admin Acetaminophen 650 mg 06/24/25 21:18 Acetaminophen 325 Mg Tablet PO 07/24/25 21:17 Q6H PRN Fever >100.4 or pain 1-3 Hydrocodone Bitart/Acetaminophen 1 tab 06/24/25 21:23 06/25/25 09:29 Hydrocodone/Apap 5/325 Tablet PO 06/29/25 21:22 1 tab Q4HR PRN Administration PAIN SCALE 4-6 (Moderate Docusate Sodium 100 mg 06/25/25 09:00 06/26/25 10:09 Docusate Sod 100 Mg Capsule PO 07/25/25 08:59 100 mg QDAY RAYMOND Administration Protocol Famotidine 20 mg 06/25/25 09:00 06/26/25 11:08 Famotidine Inj 10 Mg/Ml Vial 2 Ml IVP 07/25/25 08:59 20 mg Q12HR RAYMOND Administration Folic Acid 1 mg 06/25/25 09:00 06/26/25 10:10 Folic Acid 1 Mg Tablet PO 06/30/25 08:59 1 mg BID RAYMOND Administration Heparin Sodium (Porcine) 5,000 unit 06/25/25 09:00 06/26/25 10:11 Heparin Sod Inj 5000 Unit/Ml Vial SC 07/09/25 08:59 5,000 unit Q12HR RAYMOND Administration Lactated Ringer's 1,000 mls @ 175 mls/hr 06/26/25 14:02 Lactated Ringers IV 07/26/25 14:01 .[id number] RAYMOND Lorazepam 0.5 mg 06/24/25 21:54 Lorazepam 0.5 Mg Tablet PO 06/29/25 21:53 Q4HR PRN CIWA Score 2-6 Lorazepam 1 mg 06/24/25 21:54 Lorazepam 0.5 Mg Tablet PO 06/29/25 21:53 Q4HR PRN CIWA SCORE 7-11 Lorazepam 2 mg 06/24/25 21:54 Lorazepam 0.5 Mg Tablet PO 06/29/25 21:53 Q4HR PRN CIWA SCORE 12-15 Morphine Sulfate 2 mg 06/24/25 21:23 06/26/25 05:10 Morphine Sulf Inj 4 Mg/Ml Vial IVP 06/29/25 21:22 2 mg Q4HR PRN Administration PAIN SCALE 7-10 (Severe Ondansetron HCl 4 mg 06/24/25 21:18 Ondansetron Inj 2 Mg/Ml Inj 2 Ml IVP 07/24/25 21:17 Q6H PRN NAUSEA OR VOMITING Protocol Thiamine HCl 100 mg 06/25/25 09:00 06/26/25 10:10 Thiamine 100 Mg Tablet PO 06/30/25 08:59 100 mg BID RAYMOND Administration Plan #Acute Pancreatitis - alcohol-induced 2 days of worsening nausea and vomiting with pain that radiates to the back. 31 year history of 6-12 beers/day alcohol consumption. Physical exam was significant for diffuse TTP of the abdomen with heightened sensitivity in RLQ and epigastrium, no signs of acute abdomen. Labs significant for leukocytosis WBC 19.2 Lactic acid Lipase 264 AST 48. CTAP mild pancreatitis. Ruled out Gallbladder cause, US: negative for cholelithiasis, borderline thickening gallbladder wall 0.37cm. Ruled out Triaglyceride 112. Patient denies history of trauma to the abdomen. Advance diet as tolerated. 06/26: Labs WBC increased 11.6-13.1 lactic acid decrease 3.7-2.6. Patient developed a fever of 100.5 and became hypotensive. Plan: -Pending blood culture, urine culture -Start antibiotic if blood or urine culture positive -Continue Zofran 4mg IVP Q6HR PRN inj -Increase IVF LR 100ml/hr to 175ml/hr -Continue Tylenol 650mg PO Q6HR PRN -Continue Narco 5 PO Q4HR PRN -Continue Morphine inj 2mg IVP Q4HR PRN -Continue Ketorolac 30mg IVP Q6HR -Regular diet -I/O routine #CIWA 31 year history of 6-12 beers/day alcohol consumption. Last drink today. CIWA difficult to assess due to overlap with pancreatitis such as nausea, vomiting, and discomfort. CIWA 5 due to NV, no tremor appreciated, mildly anxious, minimally agitated, no hallucinations. LFTS wnl other than minimal elevation of aspartate. Last drink 24hrs ago. CIWA 1 this AM Plan: -CIWA protocols -Folic acid -Thiamine #Incidental finding 14mm Noncalcified pulm nodule LLL -CT abdomen/pelvis showed 14 mm noncalcified pulmonary nodule left lower lobe, recommend PA lateral chest follow-up -Chest Xray showed 10 mm nodule overlying the right middle lobe on the lateral view, recommend 3-month follow-up PA lateral chest -Patient is currently asymptomatic at this time, no intervention needed Plan: -Advised patient to follow up with PCP to repeat PA lateral chest in 3 mon Assessment and plan discussed with my attending physician Dr. Hernandez and Dr. Mei (PGY-2). Dr. Sutherland (PGY-1) ? residential case manager Attending Provider Attestation/Addendum I have discussed and was present for the essential components of the history, physical examination, diagnosis, and treatment plan with the resident. I agree with the patient's care as documented by the resident and amended herein by me. Sheldon Hernandez DO. Although this document has been carefully reviewed, there may still be some phonetic and other typographical errors. These errors are purely grammatical due to imperfections in the software program and should not be construed in any way to compromise the substance of the patient's medical care during this visit. Patient seen and evaluated this AM. No acute events overnight,. Patient did spike fever this morning 100.5, likely secondary to pancreatitis, will increase his fluid rate for now, he is hungry so we will continue a limited diet and continue to monitor closely. We also ordered blood cultures and will assess however I do not think we need antibiotics as of yet. Will continue monitor closely, likely DC in 1 to 2 days pending clinical improvement.
[2025-06-26 16:00] VITALS: BP 120/71; PULSE 83; RESP 16; TEMP 37.9; O2SAT 94
[2025-06-26] MEDS: RINGERS LACTATED 1000 ML 1,000 ML 175 ML IV ×2 (17:30→22:42)
[2025-06-26] MEDS: HYDROcodone/APAP 5/325 TABLET 1 TAB PO (19:29)
[2025-06-26 20:00] VITALS: BP 139/78; PULSE 93; RESP 18; TEMP 36.7; O2SAT 95
[2025-06-27] VITALS: BP 125/78; PULSE 76; RESP 19; TEMP 37.7; O2SAT 96
[2025-06-27 04:00] VITALS: BP 121/80; PULSE 78; RESP 19; TEMP 38.4; O2SAT 95
[2025-06-27] MEDS: RINGERS LACTATED 1000 ML 1,000 ML 175 ML IV ×4 (04:49→23:17)
[2025-06-27 06:00] VITALS: BMI 20.2
[2025-06-27 06:30] LABS: Basophils # (Auto) 0.0 Thou/mm3 (0.0-0.2); Basophils % (Auto) 0 % (0-2.5); Eosinophils # (Auto) 0.1 Thou/mm3 (0.0-0.5); Eosinophils % (Auto) 1 % (0-10); Hematocrit 37.9 % (41.0-53.0); Hemoglobin 13.7 g/dL (13.5-16.0); Immature Granulocytes Auto 0.04 Thou/mm3 (0.00-0.00); Lymphocytes # (Auto) 1.2 Thou/mm3 (1.0-4.8); Lymphocytes % (Auto) 9 % (10-50); Mean Corpuscular HGB Conc 36.1 g/dl (31.0-37.0); Mean Corpuscular Hemoglobin 34.6 pg (25.0-35.0); Mean Corpuscular Volume 96 fL (80-100); Monocytes # (Auto) 1.4 Thou/mm3 (0.0-0.8); Monocytes % (Auto) 11 % (0-12); Neutrophils # (Auto) 9.8 Thou/mm3 (1.8-7.7); Neutrophils % (Auto) 78 % (37-80); Nucleated Red Blood Cell # 0.00 Thou/mm3 (0.00-0.00); Nucleated Red Blood Cell % 0 /100 WBC (0); Platelet Count 187 Thou/mm3 (140-440); RDW Standard Deviation 41.4 fL (35.1-43.9); Red Blood Count 3.96 Miln/mm3 (4.50-5.90); White Blood Count 12.5 Thou/mm3 (3.8-10.6)
[2025-06-27 06:52] LABS: Alanine Aminotransferase 17 U/L (10-49); Albumin, Serum 4.0 gm/dL (3.5-5.0); Albumin/Globulin Ratio 1.7 (1.2-2.2); Alkaline Phosphatase 71 U/L (46-116); Anion Gap 8 (7-16); Aspartate Amino Transferase 26 U/L (0-34); BUN/Creatinine Ratio 7 Ratio (12-20); Bilirubin,Total 1.3 mg/dL (0.3-1.2); Blood Urea Nitrogen < 5 mg/dL (9-23); Calcium 9.3 mg/dL (8.3-10.6); Calcium (Corrected) 9.3 mg/dL (8.5-10.1); Carbon Dioxide 29.3 mMol/L (20.0-31.0); Chloride 101 mMol/L (98-107); Creatinine (Component) 0.7 mg/dL (0.6-1.3); Estimated Creatinine Clearance 122.7 mL/min (>60); Globulin 2.3 gm/dL (2.3-3.5); Glucose 107 mg/dL (74-106); Magnesium 1.5 mg/dL (1.6-2.6); Osmolality,Calculated 272 (275-295); Phosphorous 2.9 mg/dL (2.4-5.1); Potassium 3.6 mMol/L (3.4-5.1); Sodium 138 mMol/L (136-145); Total Protein 6.3 gm/dL (5.7-8.2); eGFR > 60 See Note
[2025-06-27 07:03] VITALS: BP 124/78; PULSE 74; RESP 16; TEMP 37.3; O2SAT 94
[2025-06-27] MEDS: FOLIC ACID 1 MG TABLET PO ×2 (08:57→20:55)
[2025-06-27] MEDS: DOCUSATE SOD 100 MG CAPSULE PO (08:57)
[2025-06-27] MEDS: FAMOTIDINE INJ 10 MG/ML VIAL 2 ML 20 MG IVP ×2 (08:57→20:54)
[2025-06-27] MEDS: THIAMINE 100 MG TABLET PO ×2 (08:57→20:55)
[2025-06-27] MEDS: HEPARIN SOD INJ 5000 UNIT/ML VIAL SC ×2 (08:58→20:55)
[2025-06-27] MEDS: Magnesium Sulfate 2 GM Ivpb 2 GM/50 ML BAG IV (09:12)
[2025-06-27 11:29] VITALS: BP 121/78; PULSE 80; RESP 16; TEMP 37.2; O2SAT 95
[2025-06-27] MEDS: KETOROLAC INJ 30 MG/ML VIAL IVP ×2 (11:29→20:55)
--- NOTE | 2025-06-27 13:39 | ESPR_ITS ---
<Statement entered by Pedro Mei MD - 06/27/25 15:39> Patient seen and examined at bedside. I discussed and supervised with the internal controls specialist physician who took care of this patient. I personally saw and examined the patient. I agree with most of the assessment and plan. Plan of care discussed with attending Dr. Hernandez. Pedro Mei MD PGY-2 Documentation for date of: 06/27/25 Subjective Subjective Interval history: No event overnight. Patient was febrile at 4 AM to 101.1 resolved without Tylenol. Per nurse, last bowel movement 5 days ago, give laxatives today. Patient commented that pain medications only help a little bit. Patient got morphine 5 AM. Patient endorsed new pain that is sharp in left lower quadrant 4-5/10 with persistence 1/10 pain in midepigastric. Physical examination, however, showed more severe tenderness in midepigastric. No signs of acute abdomen at this time Exam Vital Signs Temp Pulse Resp BP Pulse Ox O2 Del Method 99.0 F 80 16 121/78 95 Room Air 06/27/25 11:29 06/27/25 11:29 06/27/25 11:29 06/27/25 11:29 06/27/25 11:29 06/27/25 11:29 Narrative Exam GENERAL APPEARANCE: AOx4. NAD, activity normal for age, well developed/ well nourished, no cyanosis, pallor, or diaphoresis. CARDIAC: Regular rate and rhythm, S1+S2 heard. No murmurs, rubs, or gallops noted RESPIRATORY: respiratory effort normal, speaks in full sentences, no tripod position, no accessory muscle use. Lungs clear to auscultation without rhonchi, wheezes, rales ABDOMINAL: NBS. Soft, diffusely TTP most sensitive in epigastrium and LLQ. No evidence of fluid wave. No pulsatile masses on exam, rebound tenderness, Alvarez sign or pain over Mcburney's point. MUSCLES/EXTREMITIES: No abnormal range of motion, no swelling. DERM: Warm, pink and dry. No rashes, dermatoses, petechiae or lesions. NEUROLOGICAL: Speech is clear and appropriate. Normal level of consciousness. Gait and coordination are normal. 5/5 strength in all extremities. PSYCH: Normal mood and affect. Objective Labs 06/27/25 05:19 06/27/25 05:19 Labs: Laboratory Results - last 24 hr 06/27/25 05:19 WBC 12.5 H RBC 3.96 L Hgb 13.7 Hct 37.9 L MCV 96 MCH 34.6 MCHC 36.1 RDW Std Deviation 41.4 Plt Count 187 Neut % (Auto) 78 Lymph % (Auto) 9 L [place] % (Auto) 11 Eos % (Auto) 1 Baso % (Auto) 0 Neut # (Auto) 9.8 H Lymph # (Auto) 1.2 [place] # (Auto) 1.4 H Eos # (Auto) 0.1 Baso # (Auto) 0.0 Immature Gran # (Auto) 0.04 H Absolute Nucleated RBC 0.00 Immature Gran % 0 Nucleated RBC % 0 Sodium 138 Potassium 3.6 Chloride 101 Carbon Dioxide 29.3 Anion Gap 8 BUN < 5 L Creatinine 0.7 Estim Creat Clear Calc 122.7 eGFR > 60 BUN/Creatinine Ratio 7 L Glucose 107 H Calculated Osmolality 272 L Calcium 9.3 Corrected Calcium 9.3 Phosphorus 2.9 Magnesium 1.5 L Total Bilirubin 1.3 H AST 26 ALT 17 Alkaline Phosphatase 71 Total Protein 6.3 Albumin 4.0 Globulin 2.3 Albumin/Globulin Ratio 1.7 Quality Measures Quality Measures VTE prophylaxis Assessment & Plan Assessment Current Active Medications: Generic Name Dose Route Start Last Admin Trade Name Freq PRN Reason Stop Dose Admin Acetaminophen 650 mg 06/24/25 21:18 Acetaminophen 325 Mg Tablet PO 07/24/25 21:17 Q6H PRN Fever >100.4 or pain 1-3 Hydrocodone Bitart/Acetaminophen 1 tab 06/24/25 21:23 06/26/25 19:29 Hydrocodone/Apap 5/325 Tablet PO 06/29/25 21:22 1 tab Q4HR PRN Administration PAIN SCALE 4-6 (Moderate Docusate Sodium 100 mg 06/25/25 09:00 06/27/25 08:57 Docusate Sod 100 Mg Capsule PO 07/25/25 08:59 100 mg QDAY RAYMOND Administration Protocol Famotidine 20 mg 06/25/25 09:00 06/27/25 08:57 Famotidine Inj 10 Mg/Ml Vial 2 Ml IVP 07/25/25 08:59 20 mg Q12HR RAYMOND Administration Folic Acid 1 mg 06/25/25 09:00 06/27/25 08:57 Folic Acid 1 Mg Tablet PO 06/30/25 08:59 1 mg BID RAYMOND Administration Heparin Sodium (Porcine) 5,000 unit 06/25/25 09:00 06/27/25 08:58 Heparin Sod Inj 5000 Unit/Ml Vial SC 07/09/25 08:59 5,000 unit Q12HR RAYMOND Administration Lactated Ringer's 1,000 mls @ 175 mls/hr 06/26/25 14:02 06/27/25 10:58 Lactated Ringers IV 07/26/25 14:01 175 mls/hr .Q5H43M RAYMOND Administration Ketorolac Tromethamine 30 mg 06/27/25 10:17 06/27/25 11:29 Ketorolac Inj 30 Mg/Ml Vial IVP 06/30/25 10:16 30 mg Q6HR PRN Administration PAIN SCALE 4-10(Mod-Sev Lorazepam 0.5 mg 06/24/25 21:54 Lorazepam 0.5 Mg Tablet PO 06/29/25 21:53 Q4HR PRN CIWA Score 2-6 Lorazepam 1 mg 06/24/25 21:54 Lorazepam 0.5 Mg Tablet PO 06/29/25 21:53 Q4HR PRN CIWA SCORE 7-11 Lorazepam 2 mg 06/24/25 21:54 Lorazepam 0.5 Mg Tablet PO 06/29/25 21:53 Q4HR PRN CIWA SCORE 12-15 Morphine Sulfate 2 mg 06/24/25 21:23 06/26/25 05:10 Morphine Sulf Inj 4 Mg/Ml Vial IVP 06/29/25 21:22 2 mg Q4HR PRN Administration PAIN SCALE 7-10 (Severe Ondansetron HCl 4 mg 06/24/25 21:18 Ondansetron Inj 2 Mg/Ml Inj 2 Ml IVP 07/24/25 21:17 Q6H PRN NAUSEA OR VOMITING Protocol Thiamine HCl 100 mg 06/25/25 09:00 06/27/25 08:57 Thiamine 100 Mg Tablet PO 06/30/25 08:59 100 mg BID RAYMOND Administration Plan #Acute Pancreatitis - alcohol-induced 2 days of worsening nausea and vomiting with pain that radiates to the back. 31 year history of 6-12 beers/day alcohol consumption. Physical exam was significant for diffuse TTP of the abdomen with heightened sensitivity in epigastrium, new tenderness to palpation on LLQ, no signs of acute abdomen. Labs significant for leukocytosis WBC 19.2 Lactic acid Lipase 264 AST 48. CTAP mild pancreatitis. Ruled out Gallbladder cause, US: negative for cholelithiasis, borderline thickening gallbladder wall 0.37cm. Ruled out Triaglyceride 112. Patient denies history of trauma to the abdomen. Advance diet as tolerated. 06/27: Labs WBC downtrending, was previously elevated likely due to worsening pancreatitis. Patient developed a new tenderness to palpation on left lower quadrant, last BM 5 days ago. Taking morphine daily for pain. Plan: -Pending blood culture, urine culture -Start antibiotic if blood or urine culture positive -If fever persist 48-72 hours, consider repeat CTAP -Continue Zofran 4mg IVP Q6HR PRN inj -Increase IVF LR 100ml/hr to 175ml/hr -Continue Tylenol 650mg PO Q6HR PRN -Continue Narco 5 PO Q4HR PRN -Continue Morphine inj 2mg IVP Q4HR PRN -Continue Ketorolac 30mg IVP Q6HR -Consider Tylenol and ketorolac first-line for pain over opioids -Regular diet -I/O routine #CIWA 31 year history of 6-12 beers/day alcohol consumption. Last drink today. CIWA difficult to assess due to overlap with pancreatitis such as nausea, vomiting, and discomfort. CIWA 5 due to NV, no tremor appreciated, mildly anxious, minimally agitated, no hallucinations. LFTS wnl other than minimal elevation of aspartate. Last drink 3 days ago. CIWA 0 this AM. Nurse reported patient has been calm and agreeable, no signs of alcohol withdrawal Plan: -CIWA protocols -Folic acid -Thiamine #Incidental finding 14mm Noncalcified pulm nodule LLL -CT abdomen/pelvis showed 14 mm noncalcified pulmonary nodule left lower lobe, recommend PA lateral chest follow-up -Chest Xray showed 10 mm nodule overlying the right middle lobe on the lateral view, recommend 3-month follow-up PA lateral chest -Patient is currently asymptomatic at this time, no intervention needed Plan: -Advised patient to follow up with PCP to repeat PA lateral chest in 3 mon Health Maintenance: Code status: Full DVT prophylaxis: heparin subQ Q12hr GI prophylaxis: Famotidine Diet: regular Ramesh: None Lines: PIV Supplemental O2: None Assessment and plan discussed with my attending physician Dr. Hernandez and Dr. Mei (PGY-2). Dr. Sutherland (PGY-1) ? residential sales consultant Attending Provider Attestation/Addendum I have discussed and was present for the essential components of the history, physical examination, diagnosis, and treatment plan with the resident. I agree with the patient's care as documented by the resident and amended herein by me. Sheldon Hernandez DO. Although this document has been carefully reviewed, there may still be some phonetic and other typographical errors. These errors are purely grammatical due to imperfections in the software program and should not be construed in any way to compromise the substance of the patient's medical care during this visit. Patient seen and evaluated this AM. Overnight, Tmax 101.1, other vital signs stable. WBC 12.5,, if the patient continues to spike fever tonight, will obtain repeat abdominal imaging tomorrow and possibly start antibiotics however will continue IVF, LR at 175 mL/h, patient does states he feels overall better however he is still rather tender to epigastric pain with palpation. Will continue to monitor closely, likely DC in 1 to 2 days home patient on the necessity of alcohol cessation and he understood.
[2025-06-27 15:56] VITALS: BMI 20.2
[2025-06-27 16:00] VITALS: BP 127/79; PULSE 80; RESP 18; TEMP 37; O2SAT 96
[2025-06-27 20:00] VITALS: BP 133/87; PULSE 90; RESP 19; TEMP 38; O2SAT 95
[2025-06-28] VITALS: BP 126/74; PULSE 66; RESP 17; TEMP 37.1; O2SAT 96
[2025-06-28 04:00] VITALS: BP 125/82; PULSE 63; RESP 18; TEMP 37.2; O2SAT 94
[2025-06-28] MEDS: RINGERS LACTATED 1000 ML 1,000 ML 175 ML IV ×3 (04:47→17:21)
[2025-06-28 06:00] VITALS: BMI 20.2
[2025-06-28 06:14] LABS: Basophils # (Auto) 0.1 Thou/mm3 (0.0-0.2); Basophils % (Auto) 1 % (0-2.5); Eosinophils # (Auto) 0.2 Thou/mm3 (0.0-0.5); Eosinophils % (Auto) 2 % (0-10); Hematocrit 36.7 % (41.0-53.0); Hemoglobin 13.1 g/dL (13.5-16.0); Immature Granulocytes Auto 0.04 Thou/mm3 (0.00-0.00); Lymphocytes # (Auto) 1.0 Thou/mm3 (1.0-4.8); Lymphocytes % (Auto) 10 % (10-50); Mean Corpuscular HGB Conc 35.7 g/dl (31.0-37.0); Mean Corpuscular Hemoglobin 34.3 pg (25.0-35.0); Mean Corpuscular Volume 96 fL (80-100); Monocytes # (Auto) 1.2 Thou/mm3 (0.0-0.8); Monocytes % (Auto) 12 % (0-12); Neutrophils # (Auto) 7.8 Thou/mm3 (1.8-7.7); Neutrophils % (Auto) 76 % (37-80); Nucleated Red Blood Cell # 0.00 Thou/mm3 (0.00-0.00); Nucleated Red Blood Cell % 0 /100 WBC (0); Platelet Count 201 Thou/mm3 (140-440); RDW Standard Deviation 41.6 fL (35.1-43.9); Red Blood Count 3.82 Miln/mm3 (4.50-5.90); White Blood Count 10.3 Thou/mm3 (3.8-10.6)
[2025-06-28 06:39] LABS: Alanine Aminotransferase 19 U/L (10-49); Albumin, Serum 4.1 gm/dL (3.5-5.0); Albumin/Globulin Ratio 2.2 (1.2-2.2); Alkaline Phosphatase 78 U/L (46-116); Anion Gap 9 (7-16); Aspartate Amino Transferase 29 U/L (0-34); BUN/Creatinine Ratio 9 Ratio (12-20); Bilirubin,Total 0.9 mg/dL (0.3-1.2); Blood Urea Nitrogen 6 mg/dL (9-23); Calcium 9.1 mg/dL (8.3-10.6); Calcium (Corrected) 9.1 mg/dL (8.5-10.1); Carbon Dioxide 28.5 mMol/L (20.0-31.0); Chloride 104 mMol/L (98-107); Creatinine (Component) 0.7 mg/dL (0.6-1.3); Estimated Creatinine Clearance 122.7 mL/min (>60); Globulin 1.9 gm/dL (2.3-3.5); Glucose 121 mg/dL (74-106); Magnesium 1.9 mg/dL (1.6-2.6); Osmolality,Calculated 279 (275-295); Phosphorous 3.7 mg/dL (2.4-5.1); Potassium 3.9 mMol/L (3.4-5.1); Sodium 141 mMol/L (136-145); Total Protein 6.0 gm/dL (5.7-8.2); eGFR > 60 See Note
[2025-06-28 08:00] VITALS: BP 131/77; PULSE 75; RESP 19; TEMP 37; O2SAT 96
--- NOTE | 2025-06-28 08:07 | XR_ITS ---
Examination: CT abdomen and pelvis without contrast. Coronal 3-D reconstructions. Sagittal 2-D reconstructions. Date and time of exam: 06/28/2025 at 9:07 a.m. INDICATION: Fevers in the setting of pancreatitis COMPARISON: CT abdomen/pelvis 06/24/2025 CTDI: vol (mGy): 6.80 DLP: (mGycm): 447 Technique: Axial images of the abdomen have been obtained, 3 mm slice thickness Intravenous contrast material has not been administered. Low dose protocols were performed. One or more of the following dose reduction techniques were used; automated exposure control, adjustment of the mA and/or KV according to patient size, use of iterative reconstruction technique. Findings: FINDINGS: Lack of intravenous contrast limits evaluation of solid organs, vasculature, and lymph nodes. Lower thorax: Redemonstration of bilateral atelectases that have progressed since prior CT with larger areas of consolidative atelectasis with air bronchograms noted in both lower lobes. The left lower lobe atelectasis partially obscures the previously visualized large posterior subpleural left lower lobe nodule. Minimal right-sided pleural effusion is now seen. Heart size is normal. Trace anterior pericardial fluid noted. Liver: The liver is mildly enlarged, measuring 20.3 cm in craniocaudal dimension and demonstrates smooth margins and homogeneous attenuation. Biliary system: No calcified gallstones or findings concerning for acute cholecystitis or biliary ductal obstruction. Spleen: Within normal limits of size. No discrete mass. Pancreas: Redemonstration of acute interstitial pancreatitis with progressive peripancreatic fat stranding particular around the pancreatic body and tail. There is more pronounced fluid along the left anterior pararenal fascia. No abnormal main pancreatic ductal dilatation identified. Adrenal glands: No significant findings. Kidneys: No contour-deforming solid mass. No calculi or hydronephrosis. Bladder: Nonspecific mild diffuse bladder wall thickening is present no calculi or discrete mass. Pelvic organs: No masses or acute findings.. Mild prostate calcification noted. Bowel/Peritoneal cavity: Limited assessment without IV and oral contrast as well as segments of underdistention. No contour deforming mass. No bowel obstruction. Gas-looking levels are identified in multiple slightly distended small bowel loops throughout the abdomen. There is no evidence for diffuse inflammatory thickening of the colon. No evidence for acute appendicitis or diverticulitis. Retroperitoneal fluid due to pancreatitis noted with otherwise no significant peritoneal ascites identified. No free air. Mildly prominent likely reactive lymph nodes are present in the upper mesentery. Vessels: No abdominal aortic aneurysm. Musculoskeletal: Multifocal degenerative changes with otherwise no evidence for recent fracture or aggressive lesion. IMPRESSION: Redemonstration of acute interstitial pancreatitis sequela with progressive peripancreatic edema and mild retroperitoneal fluid along the left anterior pararenal fascia since the prior CT. No evidence for abnormal main pancreatic ductal dilatation or bile duct obstruction. Significant progressive bibasilar atelectasis particularly in both lower lobes.
[2025-06-28] MEDS: KETOROLAC INJ 30 MG/ML VIAL IVP ×2 (08:47→20:26)
[2025-06-28] MEDS: FAMOTIDINE INJ 10 MG/ML VIAL 2 ML 20 MG IVP ×2 (08:47→20:26)
[2025-06-28] MEDS: HEPARIN SOD INJ 5000 UNIT/ML VIAL SC ×2 (08:47→20:26)
[2025-06-28] MEDS: DOCUSATE SOD 100 MG CAPSULE PO (08:47)
[2025-06-28] MEDS: FOLIC ACID 1 MG TABLET PO ×2 (08:48→20:26)
[2025-06-28] MEDS: THIAMINE 100 MG TABLET PO ×2 (08:48→20:26)
--- NOTE | 2025-06-28 08:51 | PC.SS ---
Follow up note: Pt has spiked fevers for 3 days. CAT scan required. Cultures pending. Pt will return home upon dc.
--- NOTE | 2025-06-28 08:57 | PC.NURSE ---
PATIENT ALERT AND ORIENTED X4, TRANSFER TO CT VIA WHEELCHAIR ACCOMPANIED BY TANIA MCCALLUM.
[2025-06-28 10:40] LABS: Lipase 55 U/L (12-53)
--- NOTE | 2025-06-28 11:00 | ESPR_ITS ---
<Statement entered by Pedro Mei MD - 06/28/25 16:32> Patient seen and examined at bedside. I discussed and supervised with the intern architect physician who took care of this patient. I personally saw and examined the patient. I agree with most of the assessment and plan. Patient continues to have mild fevers. CT A/P performed, showed pancreatitis, atelectasis of bibasilar lungs. Empiric AB ordered, flagyl and rocephin. Will make patient NPO, continue to monitor. Plan of care discussed with attending Dr. Hernandez. Pedro Mie MD PGY-2 Documentation for date of: 06/28/25 Subjective Subjective Interval history: No event overnight. Patient reported increasing pain in left lower quadrant and midepigastric. Nurse reported small bowel movement yesterday. CIWA is 0 today with some anxiety contributed to pain. Patient is to do CT scan right now Exam Vital Signs Temp Pulse Resp BP Pulse Ox O2 Del Method 98.6 F 75 19 131/77 H 96 Room Air 06/28/25 08:00 06/28/25 08:00 06/28/25 08:00 06/28/25 08:00 06/28/25 08:00 06/28/25 08:00 Narrative Exam GENERAL APPEARANCE: AOx4. NAD, activity normal for age, well developed/ well nourished, no cyanosis, pallor, or diaphoresis. CARDIAC: Regular rate and rhythm, S1+S2 heard. No murmurs, rubs, or gallops noted RESPIRATORY: respiratory effort normal, speaks in full sentences, no tripod position, no accessory muscle use. Lungs clear to auscultation without rhonchi, wheezes, rales ABDOMINAL: NBS. Soft, diffusely TTP most sensitive in epigastrium and LLQ. No evidence of fluid wave. No pulsatile masses on exam, rebound tenderness, Alvarez sign or pain over Mcburney's point. MUSCLES/EXTREMITIES: No abnormal range of motion, no swelling. DERM: Warm, pink and dry. No rashes, dermatoses, petechiae or lesions. NEUROLOGICAL: Speech is clear and appropriate. Normal level of consciousness. Gait and coordination are normal. 5/5 strength in all extremities. PSYCH: Normal mood and affect. Objective Labs 06/28/25 05:28 06/28/25 05:28 Labs: Laboratory Results - last 24 hr 06/28/25 05:28 WBC 10.3 RBC 3.82 L Hgb 13.1 L Hct 36.7 L MCV 96 MCH 34.3 MCHC 35.7 RDW Std Deviation 41.6 Plt Count 201 Neut % (Auto) 76 Lymph % (Auto) 10 [place] % (Auto) 12 Eos % (Auto) 2 Baso % (Auto) 1 Neut # (Auto) 7.8 H Lymph # (Auto) 1.0 [place] # (Auto) 1.2 H Eos # (Auto) 0.2 Baso # (Auto) 0.1 Immature Gran # (Auto) 0.04 H Absolute Nucleated RBC 0.00 Immature Gran % 0 Nucleated RBC % 0 Sodium 141 Potassium 3.9 Chloride 104 Carbon Dioxide 28.5 Anion Gap 9 BUN 6 L Creatinine 0.7 Estim Creat Clear Calc 122.7 eGFR > 60 BUN/Creatinine Ratio 9 L Glucose 121 H Calculated Osmolality 279 Calcium 9.1 Corrected Calcium 9.1 Phosphorus 3.7 Magnesium 1.9 Total Bilirubin 0.9 AST 29 ALT 19 Alkaline Phosphatase 78 Total Protein 6.0 Albumin 4.1 Globulin 1.9 L Albumin/Globulin Ratio 2.2 Lipase 55 H Quality Measures Quality Measures VTE prophylaxis Assessment & Plan Assessment Current Active Medications: Generic Name Dose Route Start Last Admin Trade Name Freq PRN Reason Stop Dose Admin Acetaminophen 650 mg 06/24/25 21:18 Acetaminophen 325 Mg Tablet PO 07/24/25 21:17 Q6H PRN Fever >100.4 or pain 1-3 Hydrocodone Bitart/Acetaminophen 1 tab 06/24/25 21:23 06/26/25 19:29 Hydrocodone/Apap 5/325 Tablet PO 06/29/25 21:22 1 tab Q4HR PRN Administration PAIN SCALE 4-6 (Moderate Docusate Sodium 100 mg 06/25/25 09:00 06/28/25 08:47 Docusate Sod 100 Mg Capsule PO 07/25/25 08:59 100 mg QDAY RAYMOND Administration Protocol Famotidine 20 mg 06/25/25 09:00 06/28/25 08:47 Famotidine Inj 10 Mg/Ml Vial 2 Ml IVP 07/25/25 08:59 20 mg Q12HR RAYMOND Administration Folic Acid 1 mg 06/25/25 09:00 06/28/25 08:48 Folic Acid 1 Mg Tablet PO 06/30/25 08:59 1 mg BID RAYMOND Administration Heparin Sodium (Porcine) 5,000 unit 06/25/25 09:00 06/28/25 08:47 Heparin Sod Inj 5000 Unit/Ml Vial SC 07/09/25 08:59 5,000 unit Q12HR RAYMOND Administration Lactated Ringer's 1,000 mls @ 175 mls/hr 06/26/25 14:02 06/28/25 04:47 Lactated Ringers IV 07/26/25 14:01 175 mls/hr .Q5H43M RAYMOND Administration Ketorolac Tromethamine 30 mg 06/27/25 10:17 06/28/25 08:47 Ketorolac Inj 30 Mg/Ml Vial IVP 06/30/25 10:16 30 mg Q6HR PRN Administration PAIN SCALE 4-10(Mod-Sev Lorazepam 0.5 mg 06/24/25 21:54 Lorazepam 0.5 Mg Tablet PO 06/29/25 21:53 Q4HR PRN CIWA Score 2-6 Lorazepam 1 mg 06/24/25 21:54 Lorazepam 0.5 Mg Tablet PO 06/29/25 21:53 Q4HR PRN CIWA SCORE 7-11 Lorazepam 2 mg 06/24/25 21:54 Lorazepam 0.5 Mg Tablet PO 06/29/25 21:53 Q4HR PRN CIWA SCORE 12-15 Morphine Sulfate 2 mg 06/24/25 21:23 06/26/25 05:10 Morphine Sulf Inj 4 Mg/Ml Vial IVP 06/29/25 21:22 2 mg Q4HR PRN Administration PAIN SCALE 7-10 (Severe Ondansetron HCl 4 mg 06/24/25 21:18 Ondansetron Inj 2 Mg/Ml Inj 2 Ml IVP 07/24/25 21:17 Q6H PRN NAUSEA OR VOMITING Protocol Thiamine HCl 100 mg 06/25/25 09:00 06/28/25 08:48 Thiamine 100 Mg Tablet PO 06/30/25 08:59 100 mg BID RAYMOND Administration Plan #Acute Pancreatitis - alcohol-induced 2 days of worsening nausea and vomiting with pain that radiates to the back. 31 year history of 6-12 beers/day alcohol consumption. Physical exam was significant for diffuse TTP of the abdomen with heightened sensitivity in epigastrium, new tenderness to palpation on LLQ, no signs of acute abdomen. Labs significant for leukocytosis WBC 19.2 Lactic acid Lipase 264 AST 48. CTAP mild pancreatitis. Ruled out Gallbladder cause, US: negative for cholelithiasis, borderline thickening gallbladder wall 0.37cm. Ruled out Triaglyceride 112. Patient denies history of trauma to the abdomen. 06/28: Labs WBC downtrending. Patient continues to have fever for >48 hours, CTAP repeated. Patient continues to have pain in LLQ and mid-epigastric. Repeat CT showed Redemonstration of acute interstitial pancreatitis sequela with progressive peripancreatic edema and mild retroperitoneal fluid along the left anterior pararenal fascia since the prior CT. Significant progressive bibasilar atelectasis particularly in both lower lobes. Repeat lipase improved 55 (264 at admission). Plan: -Pending blood culture, urine culture -Start antibiotic if blood or urine culture positive -Continue Zofran 4mg IVP Q6HR PRN inj -Increase IVF LR 100ml/hr to 175ml/hr -Continue Tylenol 650mg PO Q6HR PRN -Continue Narco 5 PO Q4HR PRN -Continue Morphine inj 2mg IVP Q4HR PRN -Continue Ketorolac 30mg IVP Q6HR -Tylenol and ketorolac first-line for pain over opioids -Diet changed to NPO today due to increasing pain -CT negative, plan for discharge tomorrow -I/O routine #Bibasilar atelectasis CTAP 06/[address] showed Significant progressive bibasilar atelectasis particularly in both lower lobes. Patient is asymptomatic at this time. RR 19 Sat 96% room air. Plan: -Encourage mobilization -Spirometry 10-15 times a day to prevent pneumonia #CIWA 31 year history of 6-12 beers/day alcohol consumption. Last drink today. CIWA difficult to assess due to overlap with pancreatitis such as nausea, vomiting, and discomfort. CIWA 5 due to NV, no tremor appreciated, mildly anxious, minimally agitated, no hallucinations. LFTS wnl other than minimal elevation of aspartate. Last drink 4 days ago. CIWA 0 this AM. Nurse reported patient has some anxiety, contributing it to pain Plan: -CIWA protocols -Folic acid -Thiamine #Incidental finding 14mm Noncalcified pulm nodule LLL -CT abdomen/pelvis showed 14 mm noncalcified pulmonary nodule left lower lobe, recommend PA lateral chest follow-up -Chest Xray showed 10 mm nodule overlying the right middle lobe on the lateral view, recommend 3-month follow-up PA lateral chest -Patient is currently asymptomatic at this time, no intervention needed Plan: -Advised patient to follow up with PCP to repeat PA lateral chest in 3 mon Health Maintenance: Code status: Full DVT prophylaxis: heparin subQ Q12hr GI prophylaxis: Famotidine Diet: regular Ramesh: None Lines: PIV Supplemental O2: None Assessment and plan discussed with my attending physician Dr. Hernandez and Dr. Mei (PGY-2). Dr. Sutherland (PGY-1) ? founder president and ceo Attending Provider Attestation/Addendum I have discussed and was present for the essential components of the history, physical examination, diagnosis, and treatment plan with the resident. I agree with the patient's care as documented by the resident and amended herein by me. Sheldon Hernandez DO. Although this document has been carefully reviewed, there may still be some phonetic and other typographical errors. These errors are purely grammatical due to imperfections in the software program and should not be construed in any way to compromise the substance of the patient's medical care during this visit. Patient seen and evaluated this AM. No acute events overnight, vital signs stable, patient afebrile, Tmax overnight 100.4. Repeat lipase today 55, other labs largely unremarkable. Pain is improved with palpation to the epigastric region today, repeat CT abdomen and pelvis today demonstrated continued acute interstitial pancreatitis with progressive Haresh pancreatic edema and mild retroperitoneal fluid along the left anterior pararenal fascia since the prior CT. There is no evidence of ductal dilation or bile duct obstruction. Significant progressive bibasilar atelectasis was also shown in the bilateral lower lung orr. Patient has been very difficult today, he stating that he really wants to eat he does not understand why he is still here we have explained to him numerous times that his condition is very serious and most certainly from his alcohol abuse, we explained to him the necessary treatment to him and his family however he remains unhappy and wants to eat and leave. Will continue to monitor closely, we did start antibiotics today due to fever, will continue to follow-up with his blood cultures which were drawn yesterday which thus far is NGTD. Once the patient's pain improves, we will begin light oral feeding.
[2025-06-28 12:00] VITALS: BP 125/84; PULSE 64; RESP 18; TEMP 36.9; O2SAT 95
[2025-06-28] MEDS: cefTRIAXone/D5w 1gm IV premix 1 GM/50 ML BAG IV (15:42)
[2025-06-28] MEDS: metroNIDAZOLE/NS 500 MG IVPB 500 MG/100 ML BAG 200 MG IV ×2 (15:42→21:14)
[2025-06-28 16:00] VITALS: BP 142/87; PULSE 60; RESP 18; TEMP 37; O2SAT 96
[2025-06-28] MEDS: HYDROcodone/APAP 5/325 TABLET 1 TAB PO (16:02)
[2025-06-28 20:00] VITALS: BP 153/93; PULSE 71; RESP 16; TEMP 37.2; O2SAT 98
[2025-06-28] MEDS: RINGERS LACTATED 1000 ML 1,000 ML 200 ML IV (20:27)
[2025-06-29] VITALS: BP 110/73; PULSE 66; RESP 18; TEMP 37.1; O2SAT 97
[2025-06-29] MEDS: RINGERS LACTATED 1000 ML 1,000 ML 200 ML IV ×3 (03:57→11:51)
[2025-06-29 04:00] VITALS: BP 135/92; PULSE 66; RESP 16; TEMP 37.1; O2SAT 96
[2025-06-29] MEDS: KETOROLAC INJ 30 MG/ML VIAL IVP (05:31)
[2025-06-29] MEDS: metroNIDAZOLE/NS 500 MG IVPB 500 MG/100 ML BAG 200 MG IV (05:31)
[2025-06-29 06:42] LABS: Basophils # (Auto) 0.0 Thou/mm3 (0.0-0.2); Basophils % (Auto) 1 % (0-2.5); Eosinophils # (Auto) 0.3 Thou/mm3 (0.0-0.5); Eosinophils % (Auto) 3 % (0-10); Hematocrit 36.9 % (41.0-53.0); Hemoglobin 13.1 g/dL (13.5-16.0); Immature Granulocytes Auto 0.03 Thou/mm3 (0.00-0.00); Lymphocytes # (Auto) 1.1 Thou/mm3 (1.0-4.8); Lymphocytes % (Auto) 13 % (10-50); Mean Corpuscular HGB Conc 35.5 g/dl (31.0-37.0); Mean Corpuscular Hemoglobin 33.6 pg (25.0-35.0); Mean Corpuscular Volume 95 fL (80-100); Monocytes # (Auto) 0.8 Thou/mm3 (0.0-0.8); Monocytes % (Auto) 10 % (0-12); Neutrophils # (Auto) 6.2 Thou/mm3 (1.8-7.7); Neutrophils % (Auto) 73 % (37-80); Nucleated Red Blood Cell # 0.00 Thou/mm3 (0.00-0.00); Nucleated Red Blood Cell % 0 /100 WBC (0); Platelet Count 244 Thou/mm3 (140-440); RDW Standard Deviation 40.8 fL (35.1-43.9); Red Blood Count 3.90 Miln/mm3 (4.50-5.90); White Blood Count 8.5 Thou/mm3 (3.8-10.6)
[2025-06-29 07:08] LABS: Alanine Aminotransferase 15 U/L (10-49); Albumin, Serum 4.1 gm/dL (3.5-5.0); Albumin/Globulin Ratio 2.2 (1.2-2.2); Alkaline Phosphatase 81 U/L (46-116); Anion Gap 10 (7-16); Aspartate Amino Transferase 24 U/L (0-34); BUN/Creatinine Ratio 7 Ratio (12-20); Bilirubin,Total 0.5 mg/dL (0.3-1.2); Blood Urea Nitrogen < 5 mg/dL (9-23); Calcium 9.4 mg/dL (8.3-10.6); Calcium (Corrected) 9.4 mg/dL (8.5-10.1); Carbon Dioxide 26.1 mMol/L (20.0-31.0); Chloride 104 mMol/L (98-107); Creatinine (Component) 0.7 mg/dL (0.6-1.3); Estimated Creatinine Clearance 122.7 mL/min (>60); Globulin 1.9 gm/dL (2.3-3.5); Glucose 99 mg/dL (74-106); Magnesium 1.7 mg/dL (1.6-2.6); Osmolality,Calculated 276 (275-295); Phosphorous 4.5 mg/dL (2.4-5.1); Potassium 3.7 mMol/L (3.4-5.1); Sodium 140 mMol/L (136-145); Total Protein 6.0 gm/dL (5.7-8.2); eGFR > 60 See Note
[2025-06-29 08:00] VITALS: BP 123/82; PULSE 53; RESP 16; TEMP 36.9; O2SAT 95
[2025-06-29] MEDS: MAGNESIUM OXIDE 400 MG TABLET PO (08:05)
[2025-06-29] MEDS: FAMOTIDINE INJ 10 MG/ML VIAL 2 ML 20 MG IVP (08:05)
[2025-06-29] MEDS: FOLIC ACID 1 MG TABLET PO (08:05)
[2025-06-29] MEDS: DOCUSATE SOD 100 MG CAPSULE PO (08:06)
[2025-06-29] MEDS: cefTRIAXone/D5w 1gm IV premix 1 GM/50 ML BAG IV (08:06)
[2025-06-29] MEDS: THIAMINE 100 MG TABLET PO (08:06)
[2025-06-29] MEDS: HEPARIN SOD INJ 5000 UNIT/ML VIAL SC (08:06)
--- NOTE | 2025-06-29 08:40 | PD.RESPRO ---
Documentation for date of: 06/29/25 Exam Vital Signs Temp Pulse Resp BP Pulse Ox O2 Del Method 98.7 F 66 16 135/92 H 96 Room Air 06/29/25 04:00 06/29/25 04:00 06/29/25 04:00 06/29/25 04:00 06/29/25 04:00 06/29/25 04:00 Objective Labs 06/29/25 05:25 06/29/25 05:25 Labs: Laboratory Results - last 24 hr 06/28/25 06/29/25 05:28 05:25 WBC 8.5 RBC 3.90 L Hgb 13.1 L Hct 36.9 L MCV 95 MCH 33.6 MCHC 35.5 RDW Std Deviation 40.8 Plt Count 244 D Neut % (Auto) 73 Lymph % (Auto) 13 [place] % (Auto) 10 Eos % (Auto) 3 Baso % (Auto) 1 Neut # (Auto) 6.2 Lymph # (Auto) 1.1 [place] # (Auto) 0.8 Eos # (Auto) 0.3 Baso # (Auto) 0.0 Immature Gran # (Auto) 0.03 H Absolute Nucleated RBC 0.00 Immature Gran % 0 Nucleated RBC % 0 Sodium 140 Potassium 3.7 Chloride 104 Carbon Dioxide 26.1 Anion Gap 10 BUN < 5 L Creatinine 0.7 Estim Creat Clear Calc 122.7 eGFR > 60 BUN/Creatinine Ratio 7 L Glucose 99 Calculated Osmolality 276 Calcium 9.4 Corrected Calcium 9.4 Phosphorus 4.5 Magnesium 1.7 Total Bilirubin 0.5 AST 24 ALT 15 Alkaline Phosphatase 81 Total Protein 6.0 Albumin 4.1 Globulin 1.9 L Albumin/Globulin Ratio 2.2 Lipase 55 H Quality Measures Quality Measures VTE prophylaxis Assessment & Plan Assessment Current Active Medications: Generic Name Dose Route Start Last Admin Trade Name Freq PRN Reason Stop Dose Admin Acetaminophen 650 mg 06/24/25 21:18 Acetaminophen 325 Mg Tablet PO 07/24/25 21:17 Q6H PRN Fever >100.4 or pain 1-3 Hydrocodone Bitart/Acetaminophen 1 tab 06/24/25 21:23 06/28/25 16:02 Hydrocodone/Apap 5/325 Tablet PO 06/29/25 21:22 1 tab Q4HR PRN Administration PAIN SCALE 4-6 (Moderate Docusate Sodium 100 mg 06/25/25 09:00 06/29/25 08:06 Docusate Sod 100 Mg Capsule PO 07/25/25 08:59 100 mg QDAY RAYMOND Administration Protocol Famotidine 20 mg 06/25/25 09:00 06/29/25 08:05 Famotidine Inj 10 Mg/Ml Vial 2 Ml IVP 07/25/25 08:59 20 mg Q12HR RAYMOND Administration Folic Acid 1 mg 06/25/25 09:00 06/29/25 08:05 Folic Acid 1 Mg Tablet PO 06/30/25 08:59 1 mg BID RAYMOND Administration Heparin Sodium (Porcine) 5,000 unit 06/25/25 09:00 06/29/25 08:06 Heparin Sod Inj 5000 Unit/Ml Vial SC 07/09/25 08:59 5,000 unit Q12HR RAYMOND Administration Ceftriaxone Sodium/Dextrose 1 gm in 50 mls @ 100 mls/hr 06/28/25 14:25 06/29/25 08:06 Rocephin/D5w 1gm Iv Premix IV 07/05/25 14:24 100 mls/hr QDAY RAYMOND Administration Metronidazole 500 mg in 100 mls @ 200 mls/hr 06/28/25 14:25 06/29/25 05:31 Flagyl 500 Mg Iv IV 07/05/25 14:24 200 mls/hr Q8HR RAYMOND Administration Lactated Ringer's 1,000 mls @ 200 mls/hr 06/28/25 19:19 06/29/25 08:07 Lactated Ringers IV 07/28/25 19:18 200 mls/hr .Q5H RAYMOND Administration Ketorolac Tromethamine 30 mg 06/27/25 10:17 06/29/25 05:31 Ketorolac Inj 30 Mg/Ml Vial IVP 06/30/25 10:16 30 mg Q6HR PRN Administration PAIN SCALE 4-10(Mod-Sev Lorazepam 0.5 mg 06/24/25 21:54 Lorazepam 0.5 Mg Tablet PO 06/29/25 21:53 Q4HR PRN CIWA Score 2-6 Lorazepam 1 mg 06/24/25 21:54 Lorazepam 0.5 Mg Tablet PO 06/29/25 21:53 Q4HR PRN CIWA SCORE 7-11 Lorazepam 2 mg 06/24/25 21:54 Lorazepam 0.5 Mg Tablet PO 06/29/25 21:53 Q4HR PRN CIWA SCORE 12-15 Morphine Sulfate 2 mg 06/24/25 21:23 06/26/25 05:10 Morphine Sulf Inj 4 Mg/Ml Vial IVP 06/29/25 21:22 2 mg Q4HR PRN Administration PAIN SCALE 7-10 (Severe Ondansetron HCl 4 mg 06/24/25 21:18 Ondansetron Inj 2 Mg/Ml Inj 2 Ml IVP 07/24/25 21:17 Q6H PRN NAUSEA OR VOMITING Protocol Thiamine HCl 100 mg 06/25/25 09:00 06/29/25 08:06 Thiamine 100 Mg Tablet PO 06/30/25 08:59 100 mg BID RAYMOND Administration
[2025-06-29 11:47] VITALS: BP 112/72; PULSE 63; RESP 16; TEMP 36.7; O2SAT 96
--- NOTE | 2025-06-29 14:12 | ESDS_ITS ---
<Statement entered by Matilda Chaidez MD - 06/29/25 15:14> Patient was seen and examined by me personally. I have reviewed the below documentation by the team resident and agree with its findings. Discharge plan was discussed with the attending, DO Matilda Leon MD Internal Medicine, PGY-2 Planned Discharge Date 06/29/25 DS: Providers Provider Date of admission: 06/24/25 21:18 Primary care physician: Physician No Primary/Family Admitting Provider: Amadeo Soto MD Attending Provider on Admission: Drake Hernandez DO Consults: 06/24/25 23:49 [facility] Referral - Nutrition Routine Comment: Positive screening for nutrition needs. [facility] Referral - Transportation Routine Comment: Positive screening for transportation needs. Attending Provider on DC: Mariela Zheng DO Discharging Provider: Mariela Zheng DO DS: Diagnosis Problem List Completed Was Problem List Reviewed/Reconciled?: Yes Hospital Course Hospital Course Hospital course: Summary: 44 year old alcoholic serbian speaking male with no PMHx who presents with 2 days of worsening nausea and vomiting with pain that radiates to the back. Admitted for acute pancreatitis most likely alcohol induced. CT abdomen/pelvis showed pancreatitis. Patient received IVF and pain medication. Was originally n.p.o. but patient insisted on eating, therefore clear liquid diet has been given throughout the hospital stay. Had an incidental fever spike with leukocytosis and continuing epigastric pain with repeat CT abdome/pelvis showing persistent pancreatitis. Patient continued on IVF with IV antibiotics. The next day the patient was afebrile and no longer having abdominal pain, and WBC normalized. Patient was able to tolerate regular dietm had stable vitals and labs and was discharged. ED course: ED Course Summary: VS: Hypertensive, all other vitals stable. T 98.6F HR 72 RR 18 BP 144/92 O2 96% RA. Labs: Leukocytosis WBC 19.2 Lactic acid Lipase 264 AST 48 Imaging: CTAP mild pancreatitis, 14mm noncalicfied pulm nodule LLL. US gallbladder: negative for cholelithiasis, borderline thickening gallbladder wall 0.37cm Tx: Morphine sulfate 4mg IVPx1, ondansetron 4mg IVP and NS 1L Hospital Course: Upon admission to the hospital, patient was given IV fluids LR 100 mL/h, Tylenol 650 mg p.o. Q6HR as needed, Smock 5 p.o. every 4 hours as needed and, morphine 2 mg IV every 4 hours as needed. Originally patient was n.p.o. however started clear liquid diet as patient insisted on eating food. Started on CIWA protocol and was given folic acid and thiamine for his chronic alcohol use. After 2 days of admission 06/26, patient still had epigastric pain, increased WBC from 11.6 to 13.1, fever spike of 100.[address] abd/pelvis (06/28) showed presence of acute interstitial pancreatitis with progressive peripancreatic edema and mild retroperitoneal fluids, and no evidence of abnormal main pancreatic ductal dilation or bile duct obstruction, and significant progressive bibasilar atelectasis. Started on IV ceftriaxone 1g qd, Increased IVF LR to 200 mL/h, given incentive spirometry, and switch to n.p.o. diet. On 06/29, patient became agitated regarding NPO status. Provided extended education and reasoning related to ongoing pancreatitis and need for bowel rest. Patient verbalized understanding but continued to insist on eating. Patient was afebrile for more than 24hrs and noted that he no longer had abdominal pain, and WBC decreased from 10.3 to 8.5. IV ceftriaxone 1g qd was discontinued. Patient was upgraded to regular diet and tolerated well without abdominal pain, nausea or vomiting. Patient's vitals and labs were stable and was discharged. # Acute Pancreatitis - alcohol-induced # Bibasilar atelectasis # Alcohol dependence, with withdrawal # Incidental finding 14mm Noncalcified pulm nodule LLL # Normocytic normochromic anemia Instructions: - Continue outpatient pain management with ibuprofen and extra strength Tylenol as needed - Avoid drinking alcohol as it is the reason you have this episode of pancreatitis. - Advance diet as tolerated, avoid fatty foods. Stay hydrated, 2 to 3 L of water a day - Follow-up with your primary care physician outpatient, repeat CT abdomen pelvis outpatient if you have worsening abdominal pain with your primary care physician - Rest and stay hydrated, follow-up with your primary care physician within 1 week - Return to ER if you have increased or severe abdominal pain, persistent nausea vomiting fever chills Assessment and plan discussed with my attending physician Dr. Hernandez and Dr. Chaidez (PGY-2) Dr. Zheng (PGY-1) - Internal medicine resident Status at Discharge Overall status at discharge: patient is progressing back to baseline Time Spent with Patient Time attestation: Total time spent providing and/or coordinating discharge services: Time spent: Greater than 30 minutes Exam Vital Signs Temp Pulse Resp BP Pulse Ox O2 Del Method 98.4 F 53 L 16 123/82 95 Room Air 06/29/25 08:00 06/29/25 08:00 06/29/25 08:00 06/29/25 08:00 06/29/25 08:00 06/29/25 08:00 Narrative Exam General: No acute distress, well nourished, AAO x3 Eye: PNormal conjunctiva, no scleral icterus HENT: Normocephalic, atraumatic, hearing intact to conversation at normal volume, moist oral mucosa Neck: Supple, non-tender, no JVD, no lymphadenopathy Lungs: Non-labored respirations, symmetric chest rise, Clear to auscultate bilaterally, No wheezing, rhonchi, crackles Heart: Peripheral pulses intact bilaterally, Regular Rate and Rhythm. Abdomen: Soft, non-tender, non-distended, no palpable masses Musculoskeletal: Normal range of motion and strength, No cyanosis or edema, No visible joint swelling Skin: Skin is warm, dry, no rashes or lesions. Psychiatric: Cooperative, appropriate mood and affect, Awake and alert, not agitated Neuro: Cranial nerves II-XII grossly intact. Strength 5/5 throughout. Sensations intact to light touch. Discharge Plan Plan Patient Disposition: HOME (Self Care) Patient condition on transfer: Stable Care Plan Goals: - Continue outpatient pain management with ibuprofen and extra strength Tylenol as needed - Avoid drinking alcohol as it is the reason you have this episode of pancreatitis. - Advance diet as tolerated, avoid fatty foods. Stay hydrated, 2 to 3 L of water a day - Follow-up with your primary care physician outpatient, repeat CT abdomen pelvis outpatient if you have worsening abdominal pain with your primary care physician - Rest and stay hydrated, follow-up with your primary care physician within 1 week - Return to ER if you have increased or severe abdominal pain, persistent nausea vomiting fever chills Prescriptions/Referrals Prescriptions/Med Rec: Continued acetaminophen [Tylenol Extra Strength] 500 mg tablet 1,000 mg PO Q6H PRN (Reason: pain) calcium carbonate 600 mg calcium (1,500 mg) tablet 600 mg PO DAILY Patient Comments: LATISHAE Freddie TABLETA POR V A ORAL TODOS LOS D cholecalciferol (vitamin D3) 50 mcg (2,000 unit) capsule 50 mcg PO DAILY Patient Comments: RYLAND AQUILINO TABLETA DIARIAMENTE Discontinued amoxicillin-pot clavulanate 500-125 mg tablet 1 tab PO BID Patient Comments: TOME 1 TABLETA POR V A ORAL DOS VECES AL D A POR 7 D Referrals: No Primary/Family,Physician [Primary Care Provider] Patient/Caregiver Discharge Instructions Discharge Activity: activity as tolerated Education Materials: Understanding Pancreatitis, Alcohol Addiction, Pancreatitis Acute Dc, ED Pancreatitis Print Language: Icelandic Stand Alone Forms: Nirmala Award Info., Patient Portal Info Letter Discharge Order Discharge Orders: Discharge (Routine); Ordered 06/29/25 Ordered By: Mariela Zheng Quality Discharge Quality Measures VTE prophylaxis MD Attestestation MD Attestation I have discussed and was present for the essential components of the discharge history, physical examination, diagnosis, and discharge treatment plan with the resident. I agree with the patient's discharge care as documented by the resident and amended herein by me. Sheldon Hernandez DO. Patient presented for acute pancreatitis likely secondary to alcohol use on 06/24, patient is at time of discharge today were significantly improved, the patient denied any abdominal pain whatsoever, he was tolerating full diet at time of discharge, his last recorded fever was on 06/27 at 2000 hrs. The patient feels well and significantly improved, he is stable, afebrile, tolerating p.o. intake and ambulatory at time of discharge home. We strongly encouraged the cessation of alcohol, explained thoroughly the risks of continuing especially with repeat episodes of pancreatitis and the patient understood The patient understood all discharge instructions, all questions were answered satisfactorily. The patient was instructed to return to the Emergency Department is symptoms worsened or persisted. Although this document has been carefully reviewed, there may still be some phonetic and other typographical errors. These errors are purely grammatical due to imperfections in the software program and should not be construed in any way to compromise the substance of the patient's medical care during this visit.
[2025-06-29 14:25] VITALS: BP 125/85; PULSE 68; RESP 16; TEMP 36.6; O2SAT 97
== END 2025-06-29 16:16 | disposition home or self-care (01) | DRG 282 ==
LOC: SERX 19:51 → SERHOLD 21:43 → S3NX 22:37
PROVIDERS: Nurse Practitioner Family; Admitting Provider Internal Medicine; Emergency Provider Emergency Medicine; Visit Provider Student in an Organized Health Care Education/Training Program
DX: K85.20 Alcohol induced acute pancreatitis without necrosis or infection (principal); R91.1 Solitary pulmonary nodule; J98.11 Atelectasis; F10.239 Alcohol dependence with withdrawal, unspecified; Z79.891 Long term (current) use of opiate analgesic
CPT/HCPCS: 36415; 71045; 74176; 76705; 80053; 80061; 81001; 83036; 83605; 83690; 83735; 84100; 85025; 87040; 87086; 93225; 94762; 96361; 96374; 96375; 96376; 99284; J0696; J1644; J1885; J2270; J2405; J3475; J3490; J7030; J7120; A9270; J1836